=== PATIENT | female | born 2000 | race Caucasian/White ===

== ENCOUNTER 2022-07-03 23:35 | Outpatient (CLI) | payer OTHER, SELFPAY | END 2022-07-03 23:36 | disposition home or self-care (01) | LOC: AMB 07-16 16:43 | PROVIDERS: Visit Provider Internal Medicine | DX: S61.012A Laceration without foreign body of left thumb without damage to nail, initial encounter (principal); W45.8XXA Other foreign body or object entering through skin, initial encounter; Y92.9 Unspecified place or not applicable | CPT/HCPCS: A0425; A0429 ==

== ENCOUNTER 2022-07-03 23:53 | Emergency (ER) | payer OTHER, SELFPAY ==
[2022-07-03 23:54] VITALS: BP 99/73; PULSE 96; RESP 18; TEMP 36.9; O2SAT 98; BMI 20.5
[2022-07-04] MEDS: lidocaine HCL 2 % MULTIDOSE 20 ML VIAL INJECTION (00:09)
--- NOTE | 2022-07-04 00:34 | ED_ITS ---
HPI - General Adult General Chief complaint: Laceration/Wound Stated complaint: Thumb Lac Time Seen by Provider: 07/04/22 00:00 History of Present Illness HPI narrative: Pt is a [address] [employer] student who presents after cutting the smith aspect of her right thumb accidently with a pearing knife. Laceration is 3 cm in length with good wound approximation. No other injuries. Pain is mild. No signs of disrupted nerves, tendons or significant blood vessel. Accident happened imediately before coming to the ED. Tdap up to date. Related Data Home Medications Medication Instructions Recorded Confirmed dextroamphetamine-amphetamine 20 07/04/22 mg tablet dextroamphetamine-amphetamine 30 07/04/22 mg tablet methylphenidate HCl 30 mg biphasic mg PO 07/04/22 50-50 capsule,extended release Allergies Allergy/AdvReac Type Severity Reaction Status Date / Time No Known Drug Allergies Allergy Verified 07/04/22 00:01 Review of Systems Status of ROS: Reports: 10 or more systems reviewed and unremarkable except as noted in History and below PFSH PFSH Social History Smoking Status: Never smoker Do you use any of these nicotine containing products: None Second hand tobacco smoke exposure: No How often do you have a drink containing alcohol: 2-4 times a month How many standard drinks containing alcohol do you have on a typical day: 1 or 2 How often do you have six or more drinks on one occasion: Never AUDIT-C Alcohol total score: 2 Non-prescribed substance use: denies use service: No Exam Narrative: Exam Narrative: EXAM GENERAL: Patient appears comfortable and well. EYES: No scleral icterus. ENT: Tympanic membranes and oropharynx normal. THYROID: no thyroid nodules or thyromegaly. LYMPH: No supraclavicular or cervical lymphadenopathy. SKIN: Laceration noted palmar aspect of the left thumb 3 cm distal to the D IP EXT: No dependent lower extremity pedal edema. HEART: Regular rate and rhythm with no murmurs, rubs, or gallops. LUNGS: Clear to auscultation bilaterally with no crackles or wheezes. ABD: Soft, non tender, non distended. PSYCH: Good eye contact, speech is not pressured. Const: Vital Signs, click to edit/add: Vital Signs - 24 hr 07/03/22 23:54 Temperature 98.5 F Pulse Rate [Right Pulse Oximeter] 96 Respiratory Rate 18 Blood Pressure [Le ft Upper Arm] 99/73 Pulse Oximetry 98 Oxygen Delivery Me thod Room Air Course Course Hospital Course: Lidocaine was applied if the wound was carefully cleansed. I did close the defect with 4 running 3 0 Ethilon sutures. Wound was dressed. Vital Signs Vital signs: Initial Vital Signs Temperature 98.5 F 07/03/22 23:54 Temperature Source Temporal Artery Scan 07/03/22 23:54 Pulse Rate 96 07/03/22 23:54 Respiratory Rate 18 07/03/22 23:54 Blood Pressure 99/73 07/03/22 23:54 Blood Pressure Mean 81 07/03/22 23:54 Blood Pressure Position Supine 07/03/22 23:54 Pulse Oximetry 98 07/03/22 23:54 Oxygen Delivery Method 07/03/22 23:54 Vital Signs Temperature 98.5 F 07/03/22 23:54 Pulse Rate 96 07/03/22 23:54 Respiratory Rate 18 07/03/22 23:54 Blood Pressure 99/73 07/03/22 23:54 Pulse Oximetry 98 07/03/22 23:54 Oxygen Delivery Method 07/03/22 23:54 Temperature 98.5 F 07/03/22 23:54 Pulse Rate 96 07/03/22 23:54 Respiratory Rate 18 07/03/22 23:54 Blood Pressure 99/73 07/03/22 23:54 Pulse Oximetry 98 07/03/22 23:54 Oxygen Delivery Method 07/03/22 23:54 Medical Decision Making MDM Narrative Medical decision making narrative: Laceration the soft tissue no bony her or major vascular involvement. The wound was carefully cleaned and closed. Wound was carefully washed and dressed. Differential Diagnosis Differential Diagnosis: Laceration Discharge Plan Discharge Clinical Impression: Laceration Patient Disposition: Home, Self-Care Condition: Stable Additional Instructions: Change dressing daily Tylenol/Motrin for pain Follow up with Primary Care for suture removal in 1 week Activity Level: No Restrictions Discharge Diet: Regular Prescriptions: No Action dextroamphetamine-amphetamine 30 mg tablet Label Comments: TAKE 1 TABLET BY MOUTH IN THE MORNING dextroamphetamine-amphetamine 20 mg tablet Label Comments: TAKE 1 TABLET BY MOUTH IN THE AFTERNOON methylphenidate HCl 30 mg capsule,ER biphasic 50-50 PO Label Comments: TAKE 1 CAPSULE BY MOUTH EVERY DAY IN THE MORNING Stand Alone Forms: MyHealth Info Instructions
--- NOTE | 2022-07-04 01:21 | ED.NURSE ---
did dress wound with bacitracin and a bandaid. tube gauze was placed. wanted a w/c ride out to her room mates' car.
== END 2022-07-04 01:00 | disposition home or self-care (01) ==
PROVIDERS: Emergency Provider Internal Medicine
DX: S61.011A Laceration without foreign body of right thumb without damage to nail, initial encounter (principal); W26.0XXA Contact with knife, initial encounter; Y93.G3 Activity, cooking and baking
CPT/HCPCS: 12002; 99283

== ENCOUNTER 2022-07-23 13:47 | Emergency (ER) | payer OTHER, SELFPAY ==
[2022-07-23 14:01] VITALS: BP 96/54; PULSE 113; RESP 16; TEMP 37.7; O2SAT 96; BMI 20.5
--- NOTE | 2022-07-23 14:19 | CRLHL7_ITS ---
For Patients: As a result of the Century Cures Act, medical imaging exams and procedure reports are released immediately into your electronic medical record. You may view this report before your referring provider. If you have questions, please contact your health care provider. INDICATION: Tonsillar swelling and exudate. TECHNIQUE: CT soft tissue of the neck was acquired with 55 milliliters Isovue 370 contrast. COMPARISON: None. FINDINGS: Scattered subcentimeter lymph nodes are seen in the neck. None are pathologically enlarged or abnormally enhancing. The parotid, submandibular, and thyroid glands are normal. The muscles of the neck are normal. Fascial planes are preserved and the deep spaces of the neck are normal. The visualized airway is widely patent, and the larynx is normal. Thickening and edema of the tonsils bilaterally. No focal drainable fluid collections axial image 19 through 37 the visualized esophagus is normal. Vessels of the neck demonstrate normal course, caliber, and enhancement. Limited examination of the posterior fossa and brain is unremarkable. The visualized cervical spine is unremarkable. The visualized orbits and paranasal sinuses are normal. Limited examination of the superior thorax shows no pulmonary consolidation, suspicious nodules, or pleural effusions. IMPRESSION: Thickening and edema of the tonsils bilaterally. No focal drainable fluid collections. Constellation of findings can be seen in the setting of tonsillitis. Please note that all CT scans at this facility use dose modulation, iterative reconstruction, and/or weight-based dosing when appropriate to reduce radiation dose to as low as reasonably achievable. Dictated by Arnoldo Doyle MD @ 07/23/2022 3:36:49 PM (Electronically Signed)
--- NOTE | 2022-07-23 14:22 | ED.GENADULT ---
HPI - General Adult General Chief complaint: Headache/Migraine Stated complaint: Headache Time Seen by Provider: 07/23/22 13:49 History of Present Illness HPI narrative: This 22-year-old female comes in reporting fever, rash in the mornings, sore throat, and headache. She states that she has had these symptoms on and off over the past month or more. She has been on 2 different antibiotics with steroids and states that she feels better during these treatments but after it is completed her symptoms have worsened. She does have some muffling of her voice but does not have trismus. Related Data Home Medications Medication Instructions Recorded Confirmed dextroamphetamine-amphetamine 20 07/04/22 mg tablet dextroamphetamine-amphetamine 30 07/04/22 mg tablet methylphenidate HCl 30 mg biphasic mg PO 07/04/22 50-50 capsule,extended release escitalopram oxalate 20 mg tablet 20 mg PO DAILY 07/23/22 07/23/22 (Lexapro) Previous Rx's Medication Instructions Recorded doxycycline hyclate 100 mg capsule 100 mg PO BID 10 days #20 caps 07/23/22 hydrocodone 5 mg-acetaminophen 325 1 tab PO Q4-6H PRN pain #20 tabs 07/23/22 mg tablet methylprednisolone 4 mg tablets in See Rx Instructions PO .COMPLEX 07/23/22 a dose pack (Medrol (Garret)) #21 ea Allergies Allergy/AdvReac Type Severity Reaction Status Date / Time No Known Drug Allergies Allergy Verified 07/04/22 00:01 Review of Systems Status of ROS: Reports: 10 or more systems reviewed and unremarkable except as noted in History and below Narrative: Constitutional: No weight gain or loss. She reports fevers. Eyes: No discharge. No vision changes. HENT: No congestion. She has sore throat and ear pain bilaterally. Cardiovascular: No chest pain, no palpitations. Respiratory: No shortness of breath, no wheezes, no cough. Gastrointestinal: No abdominal pain, no vomiting, no diarrhea. Genitourinary: No dysuria, no hematuria. Musculoskeletal: Normal range of motion. Skin: No pruritis. She reports hives on her legs in the morning. Neurological: No dizziness, weakness, sensory change, speech change. Endo/Heme/Allergies: No bruising or bleeding. No polydipsia. Pysch: no suicidality, no anxiety, no insomnia. All other systems reviewed and are negative. PFSH PFSH Social History Smoking Status: Never smoker Do you use any of these nicotine containing products: None Second hand tobacco smoke exposure: No How often do you have a drink containing alcohol: 2-4 times a month How many standard drinks containing alcohol do you have on a typical day: 1 or 2 How often do you have six or more drinks on one occasion: Never AUDIT-C Alcohol total score: 2 Non-prescribed substance use: denies use service: No Exam Narrative: Exam Narrative: Constitutional: Well-developed, well-nourished. She is diaphoretic. HEENT: Normocephalic, atraumatic. Tympanic membranes appear normal bilaterally. Oropharynx has bilateral tonsillar hypertrophy with exudate. Neck: Normal range of motion. Nontender. Supple. Heart: Regular. No murmurs. Tachycardia, around 110 beats per minute. Intact distal pulses. Lungs: Clear to auscultation. No chest discomfort. No wheezes, rhonchi, or rales. Abdomen: Normal bowel sounds. Nontender. No rebound tenderness. Genitalia: Deferred. Back: No midline tenderness. Normal range of motion. Extremities: Normal range of motion. No injury. Skin: Intact. No rash. Warm. No erythema or pallor. Neurologic: No altered sensation. No weakness. Alert and oriented. Psychiatric: No suicidality. No anxiety or depression. No insomnia. Nursing notes and vitals signs are reviewed. Const: Vital Signs, click to edit/add: Vital Signs - 24 hr 07/23/22 14:01 07/23/22 16:43 Temperature 99.9 F H 98.6 F Pulse Rate [Left P ulse Oximeter] 113 H 88 Respiratory Rate 16 16 Blood Pressure [Le ft Upper Arm] 96/54 L 94/56 L Pulse Oximetry 96 99 Oxygen Delivery Me thod Room Air Course Vital Signs Vital signs: Initial Vital Signs Temperature 99.9 F H 07/23/22 14:01 Temperature Source Temporal Artery Scan 07/23/22 14:01 Pulse Rate 113 H 07/23/22 14:01 Respiratory Rate 16 07/23/22 14:01 Blood Pressure 96/54 L 07/23/22 14:01 Blood Pressure Mean 68 07/23/22 14:01 Blood Pressure Position Left Lateral 07/23/22 14:01 Pulse Oximetry 96 07/23/22 14:01 Vital Signs Temperature 99.9 F H 07/23/22 14:01 Pulse Rate 113 H 07/23/22 14:01 Respiratory Rate 16 07/23/22 14:01 Blood Pressure 96/54 L 07/23/22 14:01 Pulse Oximetry 96 07/23/22 14:01 Temperature 98.6 F 07/23/22 16:43 Pulse Rate 88 07/23/22 16:43 Respiratory Rate 16 07/23/22 16:43 Blood Pressure 94/56 L 07/23/22 16:43 Pulse Oximetry 99 07/23/22 16:43 Oxygen Delivery Method 07/23/22 16:43 Medical Decision Making MDM Narrative Medical decision making narrative: This patient comes in with more than a month of sore throat and headache with occasional fevers. She has been treated twice with antibiotics. This was done elsewhere. She believes that she had taken Keflex at 1st and then Augmentin. She returns today with some muffling of her voice but does not have trismus. Her oropharynx shows bilateral tonsillar swelling with exudate. She has anterior cervical lymphadenopathy also. An IV was established and labs were drawn. She does have an increased white count at around 16,000. Her lactate level is in normal range. A blood culture is acquired with results pending. CT scan of the soft tissue of the neck shows bilateral tonsillar swelling typical of tonsillitis. There is no evidence of abscess. With patient received an IV dose of Rocephin and Dilaudid. A Monospot test was negative. She received prescriptions for doxycycline, Medrol Dosepak, and [place]. I advised her to follow-up with [facility] if not improving in the next few days. Lab Data Labs: Lab Results 07/23/22 07/23/22 07/23/22 Range/Units 14:34 14:34 14:34 WBC 16.29 H (4.50-11.00) K/uL RBC 4.05 (4.00-5.20) m/uL Hgb 11.7 L (12.0-16.0) gm/dL Hct 35.5 (33.0-51.0) % MCV 88 (80-100) fL MCH 29 (26-34) pg MCHC 33 (32-36) gm/dL RDW Coeff of [place] 13.0 (11.5-15.5) % Plt Count 269 (140-440) K/uL Neut % (Auto) 90.4 H (42.0-72.0) % Lymph % (Auto) 4.7 L (20-44) % [place] % (Auto) 4.2 (0.0-11.0) % Eos % (Auto) 0.0 (0.0-7.0) % Baso % (Auto) 0.1 (0.0-3.0) % Neut # (Auto) 14.70 H (1.7-7.0) K/uL Lymph # (Auto) 0.80 L (0.90-2.90) K/uL [place] # (Auto) 0.70 (0.00-0.90) K/UL Eos # (Auto) 0.00 (0.00-0.50) K/uL Baso # (Auto) 0.00 (0.00-0.30) K/uL Abs Immat Gran (auto) 0.10 (0.00-0.30) K/uL Sodium 132 L (135-149) mmol/L Potassium 3.2 L (3.6-5.1) mmol/L Chloride 100 (96-114) mmol/L Carbon Dioxide 21 (20-32) mmol/L BUN 7 (5-24) mg/dL Creatinine 0.6 (0.5-1.5) mg/dL Estimated Creat Clear 117.31 Estimated GFR 131 ml/min Glucose 135 H (60-115) mg/dL Lactate 0.9 (0.5-1.9) mmol/L Calcium 8.7 (8.4-10.6) mg/dL Monoscreen (Negative) 07/23/22 Range/Units 14:34 WBC (4.50-11.00) K/uL RBC (4.00-5.20) m/uL Hgb (12.0-16.0) gm/dL Hct (33.0-51.0) % MCV (80-100) fL MCH (26-34) pg MCHC (32-36) gm/dL RDW Coeff of [place] (11.5-15.5) % Plt Count (140-440) K/uL Neut % (Auto) (42.0-72.0) % Lymph % (Auto) (20-44) % [place] % (Auto) (0.0-11.0) % Eos % (Auto) (0.0-7.0) % Baso % (Auto) (0.0-3.0) % Neut # (Auto) (1.7-7.0) K/uL Lymph # (Auto) (0.90-2.90) K/uL [place] # (Auto) (0.00-0.90) K/UL Eos # (Auto) (0.00-0.50) K/uL Baso # (Auto) (0.00-0.30) K/uL Abs Immat Gran (auto) (0.00-0.30) K/uL Sodium (135-149) mmol/L Potassium (3.6-5.1) mmol/L Chloride (96-114) mmol/L Carbon Dioxide (20-32) mmol/L BUN (5-24) mg/dL Creatinine (0.5-1.5) mg/dL Estimated Creat Clear Estimated GFR ml/min Glucose (60-115) mg/dL Lactate (0.5-1.9) mmol/L Calcium (8.4-10.6) mg/dL Monoscreen Negative (Negative) Imaging Data CT Neck - Soft tissues: Radiologist's impression: Thickening and edema of the tonsils bilaterally. No focal drainable fluid collections. Constellation of findings can be seen in the setting of tonsillitis. Discharge Plan Discharge Clinical Impression: Acute tonsillitis Patient Disposition: Home, Self-Care Condition: Unchanged Additional Instructions: Take medication as prescribed. A follow-up appointment with [facility] is recommended. Return if worsening symptoms happen. Prescriptions: New doxycycline hyclate 100 mg capsule 100 mg PO BID 10 Days Qty: 20 0RF hydrocodone-acetaminophen 5-325 mg tablet 1 tab PO Q4-6H PRN (Reason: pain) Qty: 20 0RF methylprednisolone [Medrol (Garret)] 4 mg tablets,dose pack See Rx Instructions .ROUTE .COMPLEX Qty: 21 0RF Rx Instructions: orally per package directions No Action dextroamphetamine-amphetamine 30 mg tablet Label Comments: TAKE 1 TABLET BY MOUTH IN THE MORNING dextroamphetamine-amphetamine 20 mg tablet Label Comments: TAKE 1 TABLET BY MOUTH IN THE AFTERNOON methylphenidate HCl 30 mg capsule,ER biphasic 50-50 PO Label Comments: TAKE 1 CAPSULE BY MOUTH EVERY DAY IN THE MORNING escitalopram oxalate [Lexapro] 20 mg tablet 20 mg PO DAILY Follow Up/Referrals: Provider,Not a Local [Primary Care Provider] - Stand Alone Forms: [employer] Info Instructions
[2022-07-23 14:41] LABS: Lactate* 0.9 mmol/L (0.5-1.9)
[2022-07-23] MEDS: ONDANSETRON 2 MG/ML inj 4 MG IVP (14:42)
[2022-07-23] MEDS: HYDROmorphone 0.5 mg/0.5 ml inj IVP (14:42)
[2022-07-23 14:43] LABS: Basophils Percent Auto 0.1 % (0.0-3.0); Hematocrit 35.5 % (33.0-51.0); Hemoglobin* 11.7 gm/dL (12.0-16.0); Lymphocytes Percent Auto 4.7 % (20-44); Mean Corpuscular HGB Conc 33 gm/dL (32-36); Mean Corpuscular Hemoglobin 29 pg (26-34); Mean Corpuscular Volume 88 fL (80-100); Monocytes Percent Auto 4.2 % (0.0-11.0); Neutrophils Percent Auto 90.4 % (42.0-72.0); Platelet Count* 269 K/uL (140-440); Red Blood Count 4.05 m/uL (4.00-5.20); White Blood Count* 16.29 K/uL (4.50-11.00)
[2022-07-23] MEDS: 0.9 % SODIUM CHLORIDE 500 ML 500 ML IV (14:43)
[2022-07-23 14:50] LABS: Slide Review Reflex No
[2022-07-23 14:56] LABS: Chloride* 100 mmol/L (96-114); Sodium* 132 mmol/L (135-149)
[2022-07-23 14:57] LABS: Potassium* 3.2 mmol/L (3.6-5.1)
[2022-07-23 14:59] LABS: Carbon Dioxide* 21 mmol/L (20-32); Creatinine* 0.6 mg/dL (0.5-1.5); Est. Creatinine Clearance* 117.31; Estimated Glomerular Filt Rate 131 ml/min
[2022-07-23 15:00] LABS: Blood Urea Nitrogen* 7 mg/dL (5-24); Calcium* 8.7 mg/dL (8.4-10.6); Glucose* 135 mg/dL (60-115)
--- OUTSIDE RECORDS SUMMARY | 2022-07-23 15:13 | XMS_ITS | Encounter Summary ---
:2000 Author Organization [place] Address [facility] [place] [address] Care Team Providers Name Role Phone No Ref-Primary, Physician Primary Care Provider [phone] Reason for Visit Diagnostic Imaging XR (Routine) - Pending Review Specialty Diagnoses / Procedures Referred By Contact Refer red To Contact Diagnoses Cough Herman Sanches MD Procedures XR Chest [address] [place] [address] [place] [id number] Referral ID Status Reason Start Date Expiration Date Visits V isits Requested Authorized [id number] Pending 07/04/2022 07/04/2023 1 1 Review Encounter Details Date Type Department Care Team Description 07/04/2022 Ancillary Procedure [facility] Devyn Sanchse MD [facility] [address] [place] [id number] [phone] Social History Tobacco Use Types Packs/Day Years Used Date Never Smoker Smokeless Tobacco: Never Used Sex Assigned at Date Recorded Not on file COVID-19 Exposure Response Date Recorded In the last 10 days, have you been in contact with No / Unsu re 07/04/2022 2:05 PM CDT someone who was confirmed or suspected to have Coronavirus/COVID-19? documented as of this encounter Plan of Treatment Not on filedocumented as of this encounter Procedures Procedure Name Priority Date/Time Associated Diagnosis Comme nts XR CHEST 2 VIEWS Routine 07/04/2022 3:47 PM Cough Resul ts for this CDT procedure are i n the results section. documented in this encounter Results XR Chest 2 Views (07/04/2022 3:47 PM CDT) Anatomical Region Laterality Modality Chest Computed Radiography Specimen (Source) Anatomical Collection Method Collection Time Re ceived Time Location / / Volume Laterality 07/04/2022 3:47 PM CDT Impressions 07/04/2022 8:47 PM CDT IMPRESSION: Negative chest. Narrative 07/04/2022 8:47 PM CDT EXAM: XR CHEST 2 VIEWS LOCATION: [facility] DATE/TIME: 07/04/2022 3:47 PM INDICATION: cough COMPARISON: None. Procedure Note Bere Irizarry MD - 07/04/2022Forma tting of this note might be different from the original. EXAM: XR CHEST 2 VIEWS LOCATION: [facility] DATE/TIME: 07/04/2022 3:47 PM INDICATION: cough COMPARISON: None. IMPRESSION: Negative chest. Herman Sanches MD IMG DIAGNOSTIC IMAGING ORDER FOSTER documented in this encounter Visit Diagnoses Diagnosis Cough documented in this encounter Care Teams Substance Abuse Nurse Relationship Specialty Start Date End Date No Ref-Primary, Physician PCP - General 07/04/22 documented as of this encounter
--- OUTSIDE RECORDS SUMMARY | 2022-07-23 15:13 | XMS_ITS | Clinical Summary ---
:2000 Author Organization [facility] [place] [address] Care Team Providers Name Role Phone Pcp, No Primary Care Provider Unavailable Allergies No known active allergies Medications Medication Sig Dispensed Refills Start Date End Date Status methylphenidate HCl Take 54 mg by 0 12/11/2020 Active (CONCERTA) 54 mg ER mouth once daily tablet ethynodiol diac-eth Take 35 Tablets 0 11/14/2020 Active estradiol, 1-35 mg-mcg, by mouth once (KELNOR , 28,) daily. tablet ferrous sulfate, 65 mg Take 1 Tablet 90 Tablet 2 01/07/2021 Active elemental, (325 mg) by tabletIndications: Iron mouth 2 times deficiency anemia daily with secondary to inadequate meals. dietary iron intake Active Problems Problem Noted Date Iron deficiency anemia 01/07/2021 Vegan diet 06/13/2018 Attention deficit disorder 06/13/2018 Overview: Last Assessment & Plan: - Continue home Concerta - Uses Ritalin PRN for attention in afte rnoon. Not currently on MAR Immunizations Name Administration Dates Next Due Human Papilloma Virus Vaccine 07/10/2013, 09/02/2012, 2011 Influenza Virus, Unspecified 11/02/2017, 07/10/2013 Meningococcal B 06/07/2019, 05/04/2019 Meningococcal Vaccine (Menactra) 06/10/2017, 06/30/2012 Tdap 05/31/2020, 06/30/2012 Social History Tobacco Use Types Packs/Day Years Used Date Never Smoker Smokeless Tobacco: Never Used Alcohol Use Standard Drinks/Week Comments Not Currently 0 (1 standard drink = 0.6 oz pure alcoho l) Sex Assigned at Date Recorded Not on file Obstetrics History Last Filed Vital Signs Vital Sign Reading Time Taken Comments Blood Pressure 94/64 01/03/2021 8:41 AM [employer] SPECIALIST Pulse 62 01/03/2021 8:41 AM HR[employer] SPECIALIST Temperature 36.8 ??C (98.2 ??F) 01/03/2021 8:41 AM HRIS SPECIALIST Respiratory Rate - - Oxygen Saturation - - Inhaled Oxygen Concentration - - Weight 51 kg (112 lb 6.4 oz) 01/03/2021 8:41 AM HRIS SPECIALIST Height 157.5 cm (5' 2) 01/03/2021 8:41 AM HRIS SPECIALIST Body Mass Index 20.56 01/03/2021 8:41 AM HRIS SPECIALIST Plan of Treatment Health Maintenance Due Date Last Done Comments COVID-19 vaccine series (#1) 2001 Chlamydia for age 16-24 2017 Hepatitis C screening for age 18-79 2019 BMI (ht and wt on same day) for age 0301/03/2022 01/03/2021 18+ Depression screening for age 12+ 01/03/2022 01/03/2021 Pap test for age 21-65 2022 Influenza for age 9-49 06/25/2022 11/02/2017, 07/10/2013 Tetanus booster 05/31/2030 05/31/2020, 06/30/2012 HPV series for age 9-26 Completed 07/10/2013, 09/02/2012, 06/30/2012 Meningococcal series for age 11-21 Completed 06/10/2017, 0 06/30/2012 Tdap Completed 05/31/2020, 06/30/2012 Results Not on filefrom Last 3 Months Insurance Payer Benefit Plan / Subscriber ID Effective Dates Phone Addre ss Type Group [facility] [id number] 2020-Present [address] [address] [place] [address] Care Teams Direct Mail Clerk Relationship Specialty Start Date End Date Pcp, No PCP - General 01/01/21 .
--- OUTSIDE RECORDS SUMMARY | 2022-07-23 15:13 | XMS_ITS | Encounter Summary ---
:2000 Author Organization [facility] Address [address] [facility] [place] [address] Care Team Providers Name Role Phone No Ref-Primary, Physician Primary Care Provider Reason for Referral Diagnostic Imaging XR (Routine) - Pending Review Specialty Diagnoses / Procedures Referred By Contact Refer red To Contact Diagnoses Herman Neumann MD Procedures XR Chest 2 Views [address] [facility] [place] [address] Referral ID Status Reason Start Date Expiration Date Visits V isits Requested Authorized [id number] Pending 07/04/2022 07/04/2023 1 1 Review Reason for Visit Reason Comments Cough Cough, sore throat, shallow breathes, started at college on Wednesday and there is a lot of black mold, she is progressively getting worse, she was dx with tonsillitis a month ago, not sure that she really ever recovered from that, she is very dizzy and weak Encounter Details Date Type Department Care Team Description 07/04/2022 Office Visit [facility] Herman Sanches M D Throat pain (Primary Dx); Urgent Care [facility] [address] [facility] Cough; [address] [facility] Lower respiratory tract infection [place] [address] [phone] Social History Tobacco Use Types Packs/Day Years Used Date Never Smoker Smokeless Tobacco: Never Used Sex Assigned at Date Recorded Not on file COVID-19 Exposure Response Date Recorded In the last 10 days, have you been in contact with No / Unsu re 07/04/2022 2:05 PM CDT someone who was confirmed or suspected to have Coronavirus/COVID-19? documented as of this encounter Last Filed Vital Signs Vital Sign Reading Time Taken Comments Blood Pressure 114/75 07/04/2022 2:58 PM CDT Pulse 114 07/04/2022 2:58 PM CDT Temperature 37.1 ??C (98.8 ??F) 07/04/2022 2:58 PM CDT Respiratory Rate 14 07/04/2022 2:58 PM CDT Oxygen Saturation 100% 07/04/2022 2:58 PM CDT Inhaled Oxygen Concentration - - Weight - - Height - - Body Mass Index - - documented in this encounter Patient Instructions Patient InstructionsHerman Sanches MD - 07/04/2022 2:10 PM CDT Okay to take ibuprofen 200 mg - 4 tablets (800 mg) every 8 hours as needed. Okay to take tylenol 500 mg - 2 tablets (1000 mg) every 6-8 hours as needed, do not exceed 3000 mg in 24 hours. Take full course of Augmentin for bronchitis/lower respiratory tract infection. This will also coverfor strep throat (culture is pending) Use albuterol inhaler to help with cough, wheezing or shortness of breath Take tessalon perles to help with cough three times a day as needed Take full course of prednisone burst to help decrease tonsillar swelling AttachmentsThe following attachments cannot be sent through Care Everywhere. Bronchitis, Antibiotic Treatment (Adult) (Citizen Of [place])documented in this encounter Progress Notes Herman Sanches MD - 07/04/2022 2:10 PM CDT SUBJECTIVE: New patient to [facility] Erica De La Cruz is a 22 year old female presenting with a chief complaint of cough, sore throat, dizzy/weak. Onset of symptoms was 1 week(s) ago. Course of illness is worsening. Severity moderate Current and Associated symptoms: cough, weak, sore throat Treatment measures tried include Tylenol/Ibuprofen, Fluids and Rest. Predisposing factors include: recent illness. Treated for tonsillitis, did improve with antibiotic and steroid but not fully recovered and got sick again. Completed COVID vaccinations Rapid COVID test negative Roommate also sick but not as bad as her Exposed to mold at [facility] Medical history - anxiety, ADHD History reviewed. No pertinent past medical history. Current Outpatient Medications Medication Sig Dispense Refill ??? albuterol (PROAIR HFA/PROVENTIL HFA/VENTOLIN HFA) 108 (90 Base) MCG/ACT inhaler Inhale 2 puffs into the lungs every 6 hours as needed for shortness of breath / dyspnea or wheezing 18 g 0 ??? amoxicillin-clavulanate (AUGMENTIN) 875-125 MG tablet Take 1 tablet by mouth 2 times daily for 10 days 20 tablet 0 ??? benzonatate (TESSALON) 200 MG capsule Take 1 capsule (200 mg) by mouth 3 times daily as needed for cough 30 capsule 0 ??? predniSONE (DELTASONE) 20 MG tablet Take 2 tablets (40 mg) by mouth daily for 5 days 10 tablet 0 ??? amphetamine-dextroamphetamine (ADDERALL) 20 MG tablet TAKE 1 TABLET BY MOUTH IN THE AFTERNOON ??? amphetamine-dextroamphetamine (ADDERALL) 30 MG tablet ??? escitalopram (LEXAPRO) 20 MG tablet ??? KELNOR 1-35 MG-MCG tablet Social History Tobacco Use ??? Smoking status: Never Smoker ??? Smokeless tobacco: Never Used Substance Use Topics ??? Alcohol use: Not on file ROS: Review of systems negative except as stated above. OBJECTIVE: BP 114/75 Pulse 114 Temp 98.8 ??F (37.1 ??C) Resp 14 SpO2 100% GENERAL APPEARANCE: healthy, alert and no distress EYES: EOMI, PERRL, conjunctiva clear RESP: lungs clear to auscultation - no rales, rhonchi or wheezes CV: regular rates and rhythm, normal S1 S2, no murmur noted PSYCH: mentation appears normal and affect normal/bright CXR - no acute infiltrate, no pleural effusion, no pneumothorax personally viewed by me Results for orders placed or performed in visit on 07/04/22 Streptococcus A Rapid Screen w/Reflex to PCR - Clinic Collect Status: Normal Specimen: Throat; Swab Result Value Ref Range Group A Strep antigen Negative Negative ASSESSMENT/PLAN: (R07.0) Throat pain (primary encounter diagnosis) Plan: Streptococcus A Rapid Screen w/Reflex to PCR - Clinic Collect, Group A Streptococcus PCR Throat Swab, predniSONE (DELTASONE) 20 MG tablet (R05.9) Cough Plan: XR Chest 2 Views, benzonatate (TESSALON) 200 MG capsule (J22) Lower respiratory tract infection Plan: albuterol (PROAIR HFA/PROVENTIL HFA/VENTOLIN HFA) 108 (90 Base) MCG/ACT inhaler, amoxicillin-clavulanate (AUGMENTIN) 875-125 MG tablet, predniSONE (DELTASONE) 20 MG tablet Reassurance given, reviewed symptomatic treatment with tylenol, ibuprofen, plenty of fluids and rest. RX Augmentin given for coverage for lower respiratory tract infection due to worsening symptoms, this will also treat for strep/tonsillitis (throat culture pending). RX prednisone burst given to help w ith tonsillitis. RX albuterol inhaler given for respiratory symptoms. Will follow up on formal Xray report and notify if any abnormalities. Follow up with primary provider if no improvement of symptoms in 1 week Herman Sanches MD July 04, 2022 5:40 PM documented in this encounter Plan of Treatment Not on filedocumented as of this encounter Procedures Procedure Name Priority Date/Time Associated Comments Diagnosis STREPTOCOCCUS A RAPID Today 07/04/2022 3:04 PM Throat pain Results for this SCREEN W REFELX TO PCR CDT proce dure are in the results section. GROUP A STREPTOCOCCUS Early AM 07/04/2022 3:04 PM Throat pain Results for this PCR THROAT SWAB CDT procedure ar e in the results section. documented in this encounter Results XR Chest 2 Views (07/04/2022 3:47 PM CDT) Anatomical Region Laterality Modality Chest Computed Radiography Specimen (Source) Anatomical Collection Method Collection Time Re ceived Time Location / / Volume Laterality 07/04/2022 3:47 PM CDT Impressions 07/04/2022 8:47 PM CDT IMPRESSION: Negative chest. Narrative 07/04/2022 8:47 PM CDT EXAM: XR CHEST 2 VIEWS LOCATION: [facility] DATE/TIME: 07/04/2022 3:47 PM INDICATION: cough COMPARISON: None. Procedure Note Bere Irizarry MD - 07/04/2022Forma tting of this note might be different from the original. EXAM: XR CHEST 2 VIEWS LOCATION: [facility] [place] [facility] DATE/TIME: 07/04/2022 3:47 PM INDICATION: cough COMPARISON: None. IMPRESSION: Negative chest. Herman Sanches MD IMG DIAGNOSTIC IMAGING ORDER FOSTER Group A Streptococcus PCR Throat Swab (07/04/2022 3:04 PM CDT) Patholo gist Method Time Signature Group A strep Not Detected Not Detected 07/05/2022 [facility] by PCR 4:10 PM CDT LABORATORY Specimen Anatomical Collection Method Collection Time Receive d Time (Source) Location / / Volume Laterality Swab STRUCTURE OF Non-blood 07/04/2022 3:04 PM 2 3:19 ANTERIOR PORTION Collection / CDT PM CDT OF NECK / Unknown Unknown Narrative [facility] - 07/05/2022 4:10 PM C DT The Xpert Xpress Strep A test, performed on the [employer] Instrument Systems, is a rapid, qualitative in vitro diagnostic t est for the detection of Streptococcus pyogenes (Group A ? - hemolytic Streptococcus, Strep A) in thr oat swab specimens from patients with signs and symptoms of pharyngitis. The Xpert X press Strep A test can be used as an aid in the diagnosis of Group A Streptococcal p haryngitis. The assay is not intended to monitor treatment for Group A Streptococ cus infections. The Xpert Xpress Strep A test utilizes an automated real-time polymera se chain reaction (PCR) to detect Streptococcus pyogenes DNA. Herman Sanches MD LAB - MICRO GENERAL ORDERABL ES Performing Organization Address City/State/ZIP Code Phon e Number [facility]AT[facility] [place] [address] [facility], [address] Streptococcus A Rapid Screen w/Reflex to PCR - Clinic Collect (07/04/2022 3:04 PM CDT) Analysis Performed At Patho logist Time Signature Group A Strep Negative Negative 07/04/2022 [facility] LABORATORY antigen 3:19 PM CDT Specimen Anatomical Collection Method Collection Time Receive d Time (Source) Location / / Volume Laterality Swab STRUCTURE OF Non-blood 07/04/2022 3:04 PM 2 3:07 ANTERIOR PORTION Collection / CDT PM CDT OF NECK / Unknown Unknown Herman Sanches MD LAB - MICRO GENERAL ORDERABL ES Performing Organization Address City/State/ZIP Code Phon [place] [address] Lab [address] [facility] (no room number, 1st floor of clinic) [place] [address], [phone] [facility] [address] [facility] (no room number, 1st floor of clinic) documented in this encounter Visit Diagnoses Diagnosis Throat pain - Primary Cough Lower respiratory tract infection Other diseases of respiratory system, no t elsewhere classified Cough documented in this encounter Care Teams Staff Submarine Warfare Officer Relationship Specialty Start Date End Date No Ref-Primary, Physician PCP - General 07/04/22 documented as of this encounter
--- OUTSIDE RECORDS SUMMARY | 2022-07-23 15:13 | XMS_ITS ---
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), inattentive type Problem HENRY (generalized F41.1 Active 218 07575 anxiety disorder) ALLERGIES No Known Allergies ENCOUNTERS Encounter Location Date Diagnosis [facility] [address] [place] [address] [facility] [address] Jun, [place] [address] [facility] [address] Jun, [place] [address] [facility] [address] Jun, ADHD (a ttention deficit [place] hyperactivity d isorder), [address] inattentive type F90.0 and HENRY (generalized anxiety disorder) F41.1 [facility] [address] Mar, [place] [address] [facility] [address] Mar, ADHD (a ttention deficit [place] hyperactivity [place]order), [address] inattentive type F90.0 and HENRY (generalized anxiety disorder) F41.1 [facility] [address] Jan, ADHD (a ttention deficit [place] hyperactivity [place]order), [address] inattentive type F90.0 and HENRY (generalized anxiety disorder) F41.1 [facility] [address] Dec, ADHD (a ttention deficit [place] hyperactivity [place]order), [address] inattentive type F90.0 and HENRY (generalized anxiety disorder) F41.1 [facility] [address] Nov, 2021 [place] [address] [facility] [address] Nov, [address] [place] [address] [facility] [address] Nov, [address] [place] [address] [facility] [address] 10[address] Nov, ADHD (a ttention deficit [place] hyperactivity d isorder), [address] inattentive type F90.0 and HENRY (generalized anxiety disorder) F41.1 [facility] [address] Oct, ADHD (a ttention deficit [place] hyperactivity d isorder), [address] inattentive type F90.0 and HENRY (generalized anxiety disorder) F41.1 [facility] [address] [place] [address] Sep, A DHD (attention deficit [place] hyperactivity di sorder), [address] inattentive type F90.0 and HENRY (generalized anxiety disorder) F41.1 [facility] [address] 10[address] Aug, HENRY (ge neralized anxiety [place] disorder) F41.1 [address] [facility] [address] 10[address] Aug, ADHD (a ttention deficit [place] hyperactivity d isorder), [address] inattentive type F90.0 and HENRY (generalized anxiety disorder) F41.1 [facility] [place] [address] [place] Aug, [address] [place] [address] [facility] [address] Aug, [place] [address] [facility] [address] Aug, [place] [address] [facility] [address] Jul, HENRY (ge neralized anxiety [place] disorder) F41.1 and ADHD [address] (attention defic it hyperactivity di sorder), inattentive type F90.0 [facility] [address] Jul, ADHD (a ttention deficit [place] hyperactivity d isorder), [address] inattentive type F90.0 and HENRY (generalized anxiety disorder) F41.1 [facility] [address] 10[address] Jun, ADHD (a ttention deficit [place] hyperactivity d isorder), [address] inattentive type F90.0 and HENRY (generalized anxiety disorder) F41.1 [facility] [address] 10[address] May, ADHD (a ttention deficit [place] hyperactivity d isorder), [address] inattentive type F90.0 and HENRY (generalized anxiety disorder) F41.1 [facility] [address] 10[address] Apr, ADHD (a ttention deficit [place] hyperactivity [place] isorder), [address] inattentive type F90.0 and HENRY (generalized anxiety disorder) F41.1 [facility] [place] [address] [place] Apr, [address] [place] [address] IMMUNIZATIONS No Known Immunizations SOCIAL HISTORY Never Assessed REASON FOR REFERRAL FUNCTIONAL STATUS PLAN OF CARE Activity Details Follow Up 3 Months Reason: Future Appointment Provider Name:Karla cano, 2022-08-10 01:00:00 PM, [address] [place], [address], VITAL SIGNS Height 5'3 in 2021-08-12 Height 63 in in 2021-05-22 Weight 111.8 lbs 2021-08-12 Weight 113.1 lbs 2021-05-22 BMI 19.8 kg/m2 2021-08-12 BMI 20.03 kg/m2 2021-05-22 Respiratory Rate 17 /min 2021-05-22 Heart Rate 61 /min 2021-08-12 Heart Rate 71 /min 2021-05-22 Blood pressure systolic 115 mm Hg 2021-08-12 Blood pressure diastolic 63 mm Hg 2021-08-12 MEDICATIONS Medication Instructions Dosage Frequency Start End Duration Statu s Date Date Concerta 54 MG Orally Once a 1 tablet 24h Jul, days No t-Taki day in the 2020 morning Adderall 20 MG Orally in the 1 tablet Mar, days Ac tive afternoon 2021 Lexapro 20 MG Orally Once a 1 tablet 24h Mar, day(s) A ctive day 2021 Adderall 20 MG Orally in the 1 tablet Mar, 30 days Ac tive afternoon 2021 Adderall 30 MG Orally in the 1 tablet Mar, 30 days Ac tive morning 2021 Methylphenidate Orally Once a 1 capsule 24h Aug, 30 days Not-Taki HCl ER (LA) 30 MG day in the 2020 morning Adderall 30 MG Orally in the 1 tablet Mar, days Ac tive morning 2021 Concerta 54 MG Orally Once a 1 tablet 24h Aug, 30 days No t-Taki day in the 2020 morning Adderall 20 MG Orally in the 1 tablet May, 30 days Ac tive afternoon 2021 Adderall 30 MG Orally in the 1 tablet Apr, 30 days Ac tive morning 2021 Adderall 30 MG Orally in the 1 tablet Apr, days Ac tive morning 2021 Methylphenidate Orally Once a 1 tablet 24h Aug, 30 days N ot-Taki HCl ER 54 MG day in the 2020 morning Adderall 20 MG Orally in the 1 tablet Dec, 30 days Ac tive afternoon 2021 Lexapro 10 MG Orally Once a 1.5 tablet 24h 90 days A ctive day Adderall 20 MG Orally in the 1 tablet 27 Aug, 30 days Ac tive afternoon 2021 Adderall 20 MG Orally in the 1 tablet Jun, days Ac tive afternoon 2021 PROCEDURES Procedure Date Ordered Result Body Site PSYTX PT&/FAM W/E&M 16-30 MIN Oct 20, 2021 PSYTX PT&/FAM W/E&M 16-30 MIN Jul 01, 2021 PSYTX PT&/FAM W/E&M 16-30 MIN January 26, 2022 PSYTX PT&/FAM W/E&M 16-30 MIN April 20, 2022 PSYTX PT&/FAM W/E&M 45 MIN May 22, 2021 PSYTX PT&/FAM W/E&M 16-30 MIN Sep 16, 2021 PSYTX PT&/FAM W/E&M 16-30 MIN Jun 16, 2021 PSYTX PT&/FAM W/E&M 16-30 MIN Aug 12, 2021 PSYTX PT&/FAM W/E&M 16-30 MIN Nov 17, 2021 RESULTS No Results REASON FOR VISIT *EST Pt, Rx refill, ePrescription CancelRx response, ePrescription CancelRx response, Adderall Refill Request, [employer], *EST Pt, *EST Pt, refill request, Telepysch, *Cancel due to [facility] miscommunication over telepsych, ePrescription CancelRx response, ePrescription CancelRx response, ePrescription CancelRx response, transfer pharmacy, *EST Pt, I finished the , [facility]- pharmacy, *R/S due to [facility], I have been doing really good, *R/S due to [facility], rx questions, ePrescription CancelRx response, rx refill, Pharmacy Transfer, I don't think my antidepressants are working, so far so good, everything is going well, I'm in need of a refill, Rx History Insurance Providers [facility] Health Member Patient Patient Patient Patient Patient Subscriber Subscriber Subscriber Group Insurance Plan Plan Plan Plan ID Relationship Address Phone Name Date of ID Name Date of No Type Insurance Insurance Insurance Coverage to Subscriber Address Phone Name Dates [facility] [phone] [facility] [id number] [place] [id number]
--- OUTSIDE RECORDS SUMMARY | 2022-07-23 15:13 | XMS_ITS | Encounter Summary ---
:2001 Author Organization [facility] Address [address] [place] [address]. [place] [address] Care Team Providers Name Role Phone No Ref-Primary, Physician Primary Care Provider [phone] Encounter Details Date Type Department Care Team Description 07/04/2022 Travel Social History Tobacco Use Types Packs/Day Years [...] Not on filedocumented as of this encounter Visit Diagnoses Not on filedocumented in this encounter Care Teams Supply Chain Director Relationship Specialty Start Date End Date No Ref-Primary, Physician PCP - General 07/04/22 documented as of this encounter
--- OUTSIDE RECORDS SUMMARY | 2022-07-23 15:13 | XMS_ITS | Encounter Summary ---
:2000 Author Organization [facility] Address [address] [place] [address]. [place] [address] Care Team Providers Name Role Phone No Ref-Primary, Physician Primary Care Provider [phone] Encounter Details Date Type Department Care Team Description 07/11/2022 Travel Social History Tobacco Use Types Packs/Day Years Used Date Never Smoker Smokeless Tobacco: Never Used Sex Assigned at Date Recorded Not on file COVID-19 Exposure Response Date Recorded In the last 10 days, have you been in contact with No / Unsu re 07/11/2022 11:46 AM CDT someone who was confirmed or suspected to have Coronavirus/COVID-19? documented as of this encounter Plan of Treatment Not on filedocumented as of this encounter Visit Diagnoses Not on filedocumented in this encounter Care Teams Gis Coordinator Relationship Specialty Start Date End Date No Ref-Primary, Physician PCP - General 07/04/22 documented as of this encounter
--- OUTSIDE RECORDS SUMMARY | 2022-07-23 15:13 | XMS_ITS | Encounter Summary ---
:2000 Author Organization [place] Address [address] [facility] [place] [address] Care Team Providers Name Role Phone No Ref-Primary, Physician Primary Care Provider Reason for Visit Reason Comments URI Coughing not improving, righ t eye, stitch removal left thumb- sinus infection Encounter Details Date Type Department Care Team Description 07/11/2022 Office Visit [facility] Pilar Escalante t cough (Primary Dx); Ur[facility] Urena PA-C Tachycardia; [address] Fatigue, unspecified type; [place], [place] Acute conjunc tivitis of right eye, unspecified acute conjunctivitis type; [id number] Visit for suture removal [phone] Social History Tobacco Use Types Packs/Day Years [...] Sign Reading Time Taken Comments Blood Pressure 110/60 07/11/2022 11:51 AM CDT Pulse 84 07/11/2022 11:51 AM CDT Temperature 36.7 ??C (98 ??F) 07/11/2022 11:51 AM CDT Respiratory Rate 14 07/11/2022 11:51 AM CDT Oxygen Saturation 100% 07/11/2022 11:51 AM CDT Inhaled Oxygen Concentration - - Weight 50.8 kg (112 lb) 07/11/2022 11:51 AM CDT Height - - Body Mass Index - - documented in this encounter Patient Instructions Patient InstructionsPilar Escalante PA-C - 07/11/2022 12:00 PM CDT I believe persistent cough is due to bronchial irritation. Trial of steroid inhaler until symptoms better. Ok to keep monitoring heart rate. If continues to be elevated establish care with a primary care provider. Might need a holter monitor. AttachmentsThe following attachments cannot be sent through Care Everywhere. Conjunctivitis, What Is? (Icelandic)Stitches/Staple Removal, No Complication (Icelandic)documented in this encounter Progress Notes Pilar Escalante PA-C - 07/11/2022 12:00 PM CDT Assessment & Plan Persistent cough Ongoing symptoms for the past couple weeks. Chest x-ray done a week ago 07/04/2022 negative for acuteinfiltrates. Patient is currently on Augmentin. Completed a course of prednisone 2 days ago. On examshe is in no acute respiratory distress. Vitals are stable. Flovent inhaler is prescribed today. Elly Cortez at home that she can also take as needed for the cough. Keep monitoring symptoms. Would anticipate gradual improvement in symptoms. Follow-up if any worsening symptoms. Patient agrees with the plan. - fluticasone (FLOVENT HFA) 110 MCG/ACT inhaler Dispense: 12 g; Refill: 0 Tachycardia Patient has had intermittent elevated heart rate in the past couple weeks. At first today her heart rate was at 122. Heart rate recheck 84. EKG done here today is negative for acute ST or T wave abnormalities. I have recommended to keep monitoring symptoms. If symptoms are persistent advised to follow-up with primary care provider. May need a Holter monitor. We discussed red flag symptoms and when toseek emergent care. Patient agrees. - EKG 12-lead complete w/read - Clinics Fatigue, unspecified type Patient reports fatigue in the past couple weeks. I believe this is in the setting of a viral illness. We checked for mononucleosis today which resulted negative. Her CBC is unremarkable. CMP is pending she will be notified if any abnormal result. I have recommended to keep monitoring symptoms. Push fluids. Follow-up if any worsening symptoms. Patient agrees with the plan. - CBC with platelets and differential - Comprehensive metabolic panel (BMP + Alb, Alk Phos, ALT, AST, Total. Bili, TP) - Mononucleosis screen Acute conjunctivitis of right eye, unspecified acute conjunctivitis type Onset of symptoms yesterday. Polytrim eyedrops are prescribed today. Follow-up if any worsening symptoms. Patient agrees. - trimethoprim-polymyxin b (POLYTRIM) 38350-1.1 UNIT/ML-% ophthalmic solution Dispense: 5 mL; Refill: 0 Visit for suture removal Running suture removed from the left thumb today without any complication. Follow-up if any worsening symptoms. Patient agrees. 45 minutes spent on the date of the encounter doing chart review, history and exam, patient education, documentation and further activities per the note Return in about 3 weeks (around 08/01/2022) for Symptoms failing to improve. Pilar Escalante PA-C [facility] Nancy Maldonado is a 22 year old female who presents to clinic today for the following health issues: Chief Complaint Patient presents with ??? URI Coughing not improving, right eye, stitch removal left thumb- sinus infection HPI Patient is presenting to urgent care today with 3 complaints. First is recheck on cough. Was seen in urgent care about a week ago treated with Augmentin and prednisone and albuterol inhaler for lower respiratory tract infection. She reports cough is persistent. Cough is productive. Initial onset of symptoms 2 weeks ago. After moving into her college dorm. She did note there was black mold in the room. She also reports elevated heart rate intermittently in the past couple weeks. She reports fatigue. No recent fevers or chills. Second complaint is right eye redness and drainage. Onset yesterday. Third complaint is suture removal from the left thumb. Sutures put in 07/04 [facility] ED Review of Systems Constitutional, HEENT, cardiovascular, pulmonary, GI, , musculoskeletal, neuro, skin, endocrine and psych systems are negative, except as otherwise noted. Objective BP 110/60 (BP Location: Right arm) Pulse (!) 122 Temp 98 ??F (36.7 ??C) (Tympanic) Resp 14 Wt 50.8 kg (112 lb) SpO2 100% Physical Exam GENERAL: healthy, alert and no distress EYES: PERRL, EOM normal, right eye conjunctiva and sclera slightly injected, left eye exam is normal HENT: ear canals and TM's normal, mouth without ulcers or lesions, throat is moist and pink NECK: Cervical adenopathy RESP: lungs clear to auscultation - no rales, rhonchi or wheezes CV: regular rate and rhythm, normal S1 S2, tachycardia MS: no gross musculoskeletal defects noted, no edema SKIN: no suspicious lesions or rashes, well-healing laceration noted volar aspect of left thumb. Running suture removed from the left thumb today without any complication. Bactroban ointment put onand a bandage put on. EKG - Reviewed and interpreted by me appears normal, NSR, no acute ST/T changes c/w ischemia Results for orders placed or performed in visit on 07/11/22 Mononucleosis screen Status: Normal Result Value Ref Range Mononucleosis Screen Negative Negative Comprehensive metabolic panel (BMP + Alb, Alk Phos, ALT, AST, Total. Bili, TP) Status: Abnormal Result Value Ref Range Sodium 138 133 - 144 mmol/L Potassium 3.8 3.4 - 5.3 mmol/L Chloride 105 94 - 109 mmol/L Carbon Dioxide (CO2) 27 20 - 32 mmol/L Anion Gap 6 3 - 14 mmol/L Urea Nitrogen 10 7 - 30 mg/dL Creatinine 0.71 0.52 - 1.04 mg/dL Calcium 8.3 (L) 8.5 - 10.1 mg/dL Glucose 60 (L) 70 - 99 mg/dL Alkaline Phosphatase 59 40 - 150 U/L AST 10 0 - 45 U/L ALT 19 0 - 50 U/L Protein Total 7.5 6.8 - 8.8 g/dL Albumin 3.4 3.4 - 5.0 g/dL Bilirubin Total 0.3 0.2 - 1.3 mg/dL GFR Estimate >90 >60 mL/min/1.73m2 CBC with platelets and differential Status: Abnormal Result Value Ref Range WBC Count 10.8 4.0 - 11.0 10e3/uL RBC Count 4.15 3.80 - 5.20 10e6/uL Hemoglobin 11.9 11.7 - 15.7 g/dL Hematocrit 38.0 35.0 - 47.0 % MCV 92 78 - 100 fL MCH 28.7 26.5 - 33.0 pg MCHC 31.3 (L) 31.5 - 36.5 g/dL RDW 12.8 10.0 - 15.0 % Platelet Count 319 150 - 450 10e3/uL % Neutrophils 65 % % Lymphocytes 24 % % Monocytes 8 % % Eosinophils 2 % % Basophils 0 % % Immature Granulocytes 1 % NRBCs per 100 WBC 0 <1 /100 Absolute Neutrophils 7.1 1.6 - 8.3 10e3/uL Absolute Lymphocytes 2.6 0.8 - 5.3 10e3/uL Absolute Monocytes 0.8 0.0 - 1.3 10e3/uL Absolute Eosinophils 0.2 0.0 - 0.7 10e3/uL Absolute Basophils 0.0 0.0 - 0.2 10e3/uL Absolute Immature Granulocytes 0.1 <=0.4 10e3/uL Absolute NRBCs 0.0 10e3/uL CBC with platelets and differential Status: Abnormal Narrative The following orders were created for panel order CBC with platelets and differential. Procedure Abnormality Status --------- ------ CBC with platelets and d...[[id number]] Abnormal Final result Please view results for these tests on the individual orders. documented in this encounter Plan of Treatment Not on filedocumented as of this encounter Procedures Procedure Name Priority Date/Time Associated Comments Diagnosis CBC WITH PLATELETS AND Routine 07/11/2022 12:56 Fatigue, R esults for this DIFFERENTIAL PM CDT unspecified type procedure a re in the results section. CBC WITH PLATELETS & Routine 07/11/2022 12:56 Fatigue, Res ults for this DIFFERENTIAL PM CDT unspecified type procedure a re in the results section. MONONUCLEOSIS SCREEN Routine 07/11/2022 12:56 Fatigue, Res ults for this PM CDT unspecified type procedure a re in the results section. COMPREHENSIVE Routine 07/11/2022 12:56 Fatigue, Results fo r this METABOLIC PANEL PM CDT unspecified type procedur e are in the results section. EKG 12-LEAD COMPLETE Routine 07/11/2022 12:30 Tachycardia Res ults for this W/READ - CLINICS PM CDT procedure a re in the results section. documented in this encounter Results (ABNORMAL) CBC with platelets and differential (07/11/2022 12:56 PM CDT) [facility] Method Time Signature WBC Count 10.8 4.0 - 07/12/2022 [facility] 11.0 2:23 PM CDT 10e3/uL RBC Count 4.15 3.80 - 07/12/2022 [facility] 5.20 2:23 PM CDT 10e6/uL Hemoglobin 11.9 11.7 - 07/12/2022 [facility] 15.7 g/dL 2:23 PM CDT Hematocrit 38.0 35.0 - 07/12/2022 [facility] 47.0 % 2:23 PM CDT MCV 92 78 - 100 07/12/2022 [facility] fL 2:23 PM CDT MCH 28.7 26.5 - 07/12/2022 [facility] 33.0 pg 2:23 PM CDT MCHC 31.3 (L) 31.5 - 07/12/2022 [facility] 36.5 g/dL 2:23 PM CDT RDW 12.8 10.0 - 07/12/2022 [facility] 15.0 % 2:23 PM CDT Platelet Count 319 150 - 450 07/12/2022 [facility] 10e3/uL 2:23 PM CDT % Neutrophils 65 % 07/12/2022 [facility] 2:23 PM CDT % Lymphocytes 24 % 07/12/2022 [facility] 2:23 PM CDT % Monocytes 8 % 07/12/2022 [facility] 2:23 PM CDT % Eosinophils 2 % 07/12/2022 [facility] 2:23 PM CDT % Basophils 0 % 07/12/2022 [facility] 2:23 PM CDT % Immature 1 % 07/12/2022 [facility] Granulocytes 2:23 PM CDT NRBCs per 100 0 <1 /100 07/12/2022 [facility] WBC 2:23 PM CDT Absolute 7.1 1.6 - 8.3 07/12/2022 [facility] Neutrophils 10e3/uL 2:23 PM CDT Absolute 2.6 0.8 - 5.3 07/12/2022 [facility] Lymphocytes 10e3/uL 2:23 PM CDT Absolute 0.8 0.0 - 1.3 07/12/2022 [facility] Monocytes 10e3/uL 2:23 PM CDT Absolute 0.2 0.0 - 0.7 07/12/2022 [facility] Eosinophils 10e3/uL 2:23 PM CDT Absolute 0.0 0.0 - 0.2 07/12/2022 [facility] Basophils 10e3/uL 2:23 PM CDT Absolute 0.1 <=0.4 07/12/2022 [facility] Immature 10e3/uL 2:23 PM CDT Granulocytes Absolute NRBCs 0.0 10e3/uL 07/12/2022 [facility] 2:23 PM CDT Specimen Anatomical Collection Method / Collection Time Recei ruth Time (Source) Location / Volume Laterality Blood STRUCTURE OF RIGHT Venipuncture / 07/11/2022 12:56 UPPER LIMB / Unknown PM CDT 12:56 PM CDT Unknown Pilar Escalante PA-C LAB - BLOOD ORDERABLES Performing Organization Address City/State/ZIP Code [place] [phone] [facility] [address] Lab (1st floor, no room number) (ABNORMAL) Comprehensive metabolic panel (BMP + Alb, Alk Phos, ALT, AST, Total. Bili, TP) (07/11/2022 12:56 PM CDT) [facility] Method Time Signature Sodium 138 133 - 144 07/12/2022 [facility] mmol/L 2:40 PM CDT Potassium 3.8 3.4 - 5.3 07/12/2022 [facility] mmol/L 2:40 PM CDT Chloride 105 94 - 109 07/12/2022 [facility] mmol/L 2:40 PM CDT Carbon Dioxide 27 20 - 32 07/12/2022 [facility] (CO2) mmol/L 2:40 PM CDT Anion Gap 6 3 - 14 07/12/2022 [facility] mmol/L 2:40 PM CDT Urea Nitrogen 10 7 - 30 07/12/2022 [facility] mg/dL 2:40 PM CDT Creatinine 0.71 0.52 - 07/12/2022 [facility] 1.04 mg/dL 2:40 PM CDT Calcium 8.3 (L) 8.5 - 10.1 07/12/2022 [facility] mg/dL 2:40 PM CDT Glucose 60 (L) 70 - 99 07/12/2022 [facility] mg/dL 2:40 PM CDT Alkaline 59 40 - 150 07/12/2022 [facility] Phosphatase U/L 2:40 PM CDT AST 10 0 - 45 U/L 07/12/2022 [facility] 2:40 PM CDT ALT 19 0 - 50 U/L 07/12/2022 [facility] 2:40 PM CDT Protein Total 7.5 6.8 - 8.8 07/12/2022 [facility] g/dL 2:40 PM CDT Albumin 3.4 3.4 - 5.0 07/12/2022 [facility] g/dL 2:40 PM CDT Bilirubin Total 0.3 0.2 - 1.3 07/12/2022 [facility] mg/dL 2:40 PM CDT GFR Estimate >90 >60 07/12/2022 [facility] mL/min/1.7 2:40 PM CDT 3m2 Comment: Effective October 14, 2021 eGF Rcr in adults is calculated using the 2020 CKD-EPI creatinine equation which includ es age and gender (Sarai et al., NEJM, DOI: 10.1056/JEAEzu4494200) Specimen Anatomical Collection Method / Collection Time Recei ruth Time (Source) Location / Volume Laterality Blood STRUCTURE OF RIGHT Venipuncture / 07/11/2022 12:56 UPPER LIMB / Unknown PM CDT 12:56 PM CDT Unknown Pilar Escalante PA-C LAB - BLOOD ORDERABLES Performing Organization Address City/State/ZIP Code Phon e Number OX LABORATORY [facility] [place], [place] [phone] [place] [facility] [address] [place] [address] Lab (no room number, 1st floor of clinic) OX LABORATORY [place], [place] [phone] [facility] [place] [phone] [place] [facility] [address] Lab (no room number, 1st floor of clinic) Mononucleosis screen (07/11/2022 12:56 PM CDT) [facility] gist Method Time Signature Mononucleosis Negative Negative [place] 07/11/2022 [facility] Screen 1:11 PM CDT Specimen Anatomical Collection Method / Collection Time Recei ruth Time (Source) Location / Volume Laterality Blood STRUCTURE OF RIGHT Venipuncture / 07/11/2022 12:56 UPPER LIMB / Unknown PM CDT 12:56 PM CDT Unknown Pilar Escalante PA-C LAB - BLOOD ORDERABLES Performing Organization Address City/State/ZIP Code Ph[place] [address] Lab [address] [facility] Lab (no room number, 1st floor of clinic) [place] [address], [phone] [facility] [address] [facility] Lab (no room number, 1st floor of clinic) EKG 12-lead complete w/read - Clinics (07/11/2022 12:30 PM CDT) Narrative This result has an attachment that is no t available. Pilar Escalante PA-C ECG ORDERABLES documented in this encounter Visit Diagnoses Diagnosis Persistent cough - Primary Cough Tachycardia Tachycardia, unspecified Fatigue, unspecified type Acute conjunctivitis of right eye, unspe cified acute conjunctivitis type Visit for suture removal Encounter for removal of sutures documented in this encounter Care Teams Talkback Host Relationship Specialty Start Date End Date No Ref-Primary, Physician PCP - General 07/04/22 documented as of this encounter
--- OUTSIDE RECORDS SUMMARY | 2022-07-23 15:13 | XMS_ITS | Clinical Summary ---
:2000 Author Organization [place] Address [facility] [place] [address] Care Team Providers Name Role Phone No Ref-Primary, Physician Primary Care Provider [phone] Allergies No known active allergies Medications Medication Sig Dispensed Refills Start Date End Date Status amphetamine-dextroamp 0 04/21/2022 Active hetamine (ADDERALL) 30 MG tablet amphetamine-dextroamp TAKE 1 TABLET BY 0 06/28/2022 Active hetamine (ADDERALL) MOUTH IN THE 20 MG tablet AFTERNOON escitalopram 0 06/15/2022 Active (LEXAPRO) 20 MG tablet KELNOR -35 0 06/10/2022 Ac tive MG-MCG tablet albuterol (PROAIR Inhale 2 puffs 18 g 0 07/04/2022 Active HFA/PROVENTIL into the lungs HFA/VENTOLIN HFA) 108 every 6 hours as (90 Base) MCG/ACT needed for inhalerIndications: shortness of Lower respiratory breath / dyspnea tract infection or wheezing benzonatate Take 1 capsule 30 capsule 0 07/04/2022 A ctive (TESSALON) 200 MG (200 mg) by capsuleIndications: mouth 3 times Cough daily as needed for cough fluticasone (FLOVENT Inhale 1 puff 12 g 0 07/11/2022 Active HFA) 110 MCG/ACT into the lungs 2 inhalerIndications: times daily Persistent cough amoxicillin-clavulana Take 1 tablet by 20 tablet 0 07/04/2022 07/14/2022 te (AUGMENTIN) mouth 2 times 875-125 MG daily for 10 tabletIndications: days Lower respiratory tract infection predniSONE Take 2 tablets 10 tablet 0 07/04/2022 07/09/2022 Ex pired (DELTASONE) 20 MG (40 mg) by mouth tabletIndications: daily for 5 days Throat pain, Lower respiratory tract infection trimethoprim-polymyxi Place 1-2 drops 5 mL 0 07/11/2022 0 07/18/2022 n b (POLYTRIM) into the right 59388-1.1 UNIT/ML-% eye 3 times ophthalmic daily for 7 days solutionIndications: Acute conjunctivitis of right eye, unspecified acute conjunctivitis type Active Problems No known active problems Encounters Date Type Specialty Care Team Description 07/11/2022 Office Visit Urgent Care Pilar Escalante Persistent cou gh (Primary Dx); SALINA Urena Tachycardia; Fatigue, unspec ified type; Acute conjuncti vitis of right eye, unspecified acute conjunctivitis type; Visit for sutur e removal 07/11/2022 Travel 07/04/2022 Ancillary Procedure Radiology. Herman Sanches MD Cough 07/04/2022 Office Visit Urgent Care Herman Sanches MD Throat pain (Primary Dx); Cough; Lower respirato ry tract infection 07/04/2022 Travel from Last 3 Months Social History Tobacco Use Types Packs/Day Years Used Date Never Smoker Smokeless Tobacco: Never Used Sex Assigned at Date Recorded Not on file COVID-19 Exposure Response Date Recorded In the last 10 days, have you been in contact with No / Unsu re 07/11/2022 11:46 AM CDT someone who was confirmed or suspected to have Coronavirus/COVID-19? Last Filed Vital Signs Vital Sign Reading [...] - - Body Mass Index - - Plan of Treatment Health Maintenance Due Date Last Done Comments ADVANCE CARE PLANNING 2001 ANNUAL REVIEW OF HM ORDERS 2001 CHLAMYDIA SCREENING 2001 PREVENTIVE CARE VISIT 2001 HIV SCREENING 2016 HEPATITIS C SCREENING 2019 DTAP/TDAP/TD IMMUNIZATION 12/01/2020 05/31/2020, 06/30/2012 (3 - Td or Tdap) COVID-19 Vaccine (3 - 05/06/2021 03/11/2021, 02/11/2021 Booster for Moderna series) PHQ-2 (once per calendar 10/25/2021 year) PAP 2022 INFLUENZA VACCINE (#1) 2022 11/02/2017, 11/02/2017, 07/10/2013, Additional history exists HPV IMMUNIZATION Completed 07/10/2013, 09/02/2012, 06/30/2012 HEPATITIS B IMMUNIZATION Aged Out No long er eligible based on patient 's age to complete this topic IPV IMMUNIZATION Aged Out No longer eligi ble based on patient 's age to complete this topic MENINGITIS IMMUNIZATION Aged Out No longe r eligible based on patient 's age to complete this topic Pneumococcal Vaccine: Aged Out No longer eligible Pediatrics (0 to 5 Years) based on patient's age and At-Risk Patients (6 to to co mplete this topic 64 Years) Procedures Procedure Name Priority Date/Time Associated Comments Diagnosis CBC WITH PLATELETS & Routine 07/11/2022 12:56 Fatigue, Res ults for this DIFFERENTIAL PM CDT unspecified type procedure a re in the results section. CBC WITH PLATELETS AND Routine 07/11/2022 12:56 Fatigue, R esults for this DIFFERENTIAL PM CDT unspecified type procedure a re in the results section. COMPREHENSIVE Routine 07/11/2022 12:56 Fatigue, Results fo r this METABOLIC PANEL PM CDT unspecified type procedur e are in the results section. MONONUCLEOSIS SCREEN Routine 07/11/2022 12:56 Fatigue, Res ults for this PM CDT unspecified type procedure a re in the results section. EKG 12-LEAD COMPLETE Routine 07/11/2022 12:30 Tachycardia Res ults for this W/READ - CLINICS PM CDT procedure a re in the results section. XR CHEST 2 VIEWS Routine 07/04/2022 3:47 PM Cough Resul ts for this CDT procedure are i n the results section. GROUP A STREPTOCOCCUS Early AM 07/04/2022 3:04 PM Throat pain Results for this PCR THROAT SWAB CDT procedure ar e in the results section. STREPTOCOCCUS A RAPID Today 07/04/2022 3:04 PM Throat pain Results for this SCREEN W REFELX TO PCR CDT proce dure are in the results section. from Last 3 Months Results (ABNORMAL) CBC with platelets and differential (07/11/2022 12:56 PM CDT) [facility] Method Time Signature WBC Count 10.8 4.0 [...] Address City/State/ZIP Code [place] [address] [facility] Lab [address] Lab (1st floor, no room number) Mononucleosis screen (07/11/2022 12:56 PM CDT) [facility] gist Method Time Signature Mononucleosis Negative Negative [...] Address City/State/ZIP Code [place] [address] [facility] Lab (no room number, 1st floor of clinic) [place] [address], [facility] [address] [facility] Lab (no room number, 1st floor of clinic) (ABNORMAL) Comprehensive metabolic panel (BMP + Alb, Alk Phos, ALT, AST, Total. Bili, TP) (07/11/2022 12:56 PM CDT) [facility] Method Time Signature Sodium 138 133 - [...] and gender (Sarai et al., NEJM, DOI: 10.1056/[id number]) Specimen Anatomical Collection Method / Collection Time Recei ruth Time (Source) Location / Volume Laterality Blood STRUCTURE OF RIGHT Venipuncture / 07/11/2022 12:56 UPPER LIMB / Unknown PM CDT 12:56 PM CDT Unknown Pilar Escalante PA-C LAB - BLOOD ORDERABLES Performing Organization Address City/State/ZIP Code Phon e Number OX LABORATORY [facility] [place], [place] [phone] [facility] [address] [place] [address] Lab (no room number, 1st floor of clinic) OX LABORATORY [place], [place] [phone] [facility] [address], [facility] [place] [facility] [address] Lab (no room number, 1st floor of clinic) EKG 12-lead complete w/read - Clinics (07/11/2022 12:30 PM CDT) Narrative This result has an attachment that is no t available. Pilar Escalante PA-C ECG ORDERABLES XR Chest 2 Views (07/04/2022 3:47 PM CDT) Anatomical Region Laterality Modality Chest Computed Radiography Specimen (Source) Anatomical Collection Method Collection Time Re ceived Time Location / / Volume Laterality 07/04/2022 3:47 PM CDT Impressions 07/04/2022 8:47 PM CDT IMPRESSION: Negative chest. Narrative 07/04/2022 8:47 PM CDT EXAM: XR CHEST 2 VIEWS LOCATION: [facility] DATE/TIME: 07/04/2022 3:47 PM INDICATION: cough COMPARISON: None. Procedure Note Bere Irizarry MD - 07/04/2022Forma tting of this note might be different from the original. EXAM: XR CHEST 2 VIEWS LOCATION: [facility] DATE/TIME: 07/04/2022 3:47 PM INDICATION: cough COMPARISON: None. IMPRESSION: Negative chest. Herman Sanches MD IMG DIAGNOSTIC IMAGING ORDER FOSTER Streptococcus A Rapid Screen w/Reflex to PCR [...] MICRO GENERAL ORDERABL ES Performing Organization Address [facility] Phon [place] [address] [facility] Lab (no room number, 1st floor of clinic) [place] [address], [facility] [address] [facility] Lab (no room number, 1st floor of clinic) Group A Streptococcus PCR Throat Swab (07/04/2022 [...] Xpress Strep A test, performed on the [employer], is a rapid, qualitative in [...] MICRO GENERAL ORDERABL ES Performing Organization Address City/[facility] Phon e Number [facility] [place] [address] [address] Lab [address] [facility], [address] from Last 3 Months Insurance Payer Benefit Plan / Subscriber ID Effective Phone Address T ype Group Dates [facility] [id number] 2022-Jaz [phone] [address] [facility] [address] [place] [address] Care Teams Warehouse Person Relationship Specialty Start Date End Date No Ref-Primary, Physician PCP - General 07/04/22
[2022-07-23 16:29] LABS: Mono Screen* Negative (Negative)
[2022-07-23 16:43] VITALS: BP 94/56; PULSE 88; RESP 16; TEMP 37; O2SAT 99
[2022-07-23] MEDS: KETOROLAC 30 MG/ML inj IVP (17:13)
[2022-07-23] MEDS: cefTRIAXone 1 GM in 0.9 % SODIUM CHLORIDE Mini-bag 100 ML IVPB (17:14)
[2022-07-23 18:21] VITALS: BP 93/55; PULSE 79; RESP 20; O2SAT 99
[2022-07-23 18:22] VITALS: BP 93/55; PULSE 79; RESP 20; TEMP 37.1
== END 2022-07-23 18:23 | disposition home or self-care (01) ==
PROVIDERS: Emergency Provider Emergency Medicine Emergency Medical Services
DX: J03.90 Acute tonsillitis, unspecified (principal)
CPT/HCPCS: 36415; 70491; 80048; 83605; 85025; 86308; 87040; 96365; 96375; 99284; 99285; J0696; J1170; J1885; J2405; J7120; Q9967

== ENCOUNTER 2022-07-29 13:46 | Outpatient (CLI) | payer OTHER, SELFPAY ==
--- OUTSIDE RECORDS SUMMARY | 2022-07-29 13:50 | XMS_ITS | Encounter Summary ---
:2001 Author Organization [place] Address [facility] [place] [address] Care Team Providers Name Role Phone No Ref-Primary, Physician Primary Care Provider [phone] Reason for Visit Diagnostic Imaging XR (Routine) - Pending Review Specialty Diagnoses / Procedures Referred By Contact Refer red To Contact Diagnoses Cough Herman Sanches MD Procedures XR Chest [address] [place] [address] [place]NDE[place] [address] Referral ID Status Reason Start Date Expiration Date Visits V isits Requested Authorized [id number] Pending 07/04/2022 07/04/2023 1 1 Review Encounter Details Date Type Department Care Team Description 07/04/2022 Ancillary Procedure [facility] Devyn aSnches MD [facility] [address] [place] [address] [phone] Social History Tobacco Use Types Packs/Day Years [...] CDT EXAM: XR CHEST 2 VIEWS LOCATION: [facility] DATE/TIME: 07/04/2022 3:47 PM INDICATION: cough COMPARISON: None. Procedure Note Bere Irizarry MD - 07/04/2022Forma tting of this note might be different from the original. EXAM: XR CHEST 2 VIEWS LOCATION: [facility] DATE/TIME: 07/04/2022 3:47 PM INDICATION: cough COMPARISON: None. IMPRESSION: Negative chest. Herman Sanches MD IMG DIAGNOSTIC IMAGING ORDER FOSTER documented in this encounter Visit Diagnoses Diagnosis Cough documented in this encounter Care Teams Team Leader Relationship Specialty Start Date End Date No Ref-Primary, Physician PCP - General 07/04/22 documented as of this encounter
--- OUTSIDE RECORDS SUMMARY | 2022-07-29 13:50 | XMS_ITS | Clinical Summary ---
:2001 Author Organization [facility] [place] [address] Care Team Providers Name Role Phone Pcp, [...] Comments Blood Pressure 94/64 01/03/2021 8:41 AM FLIGHT INSTRUCTOR Pulse 62 01/03/2021 8:41 AM FLIGHT INSTRUCTOR Temperature 36.8 ??C (98.2 ??F) 01/03/2021 8:41 AM FLIGHT INSTRUCTOR Respiratory Rate - - Oxygen Saturation - - Inhaled Oxygen Concentration - - Weight 51 kg (112 lb 6.4 oz) 01/03/2021 8:41 AM FLIGHT INSTRUCTOR Height 157.5 cm (5' 2) 01/03/2021 8:41 AM FLIGHT INSTRUCTOR Body Mass Index 20.56 01/03/2021 8:41 AM FLIGHT INSTRUCTOR Plan of Treatment Health Maintenance Due Date [...] Effective Dates Phone Addre ss Type Group [facility] [id number] 2020-Present [address] [address] [place] [address] Care Teams Election Clerk Relationship Specialty Start Date End Date Pcp, No PCP - General 01/01/21 .
--- OUTSIDE RECORDS SUMMARY | 2022-07-29 13:50 | XMS_ITS | Encounter Summary ---
:2001 Author Organization [place] Address [address] [facility] [place] [address] Care Team Providers Name Role Phone No Ref-Primary, Physician Primary Care Provider [phone] Reason for Visit Reason Comments URI Coughing not improving, righ t eye, stitch removal left thumb- sinus infection Encounter Details Date Type Department Care Team Description 07/11/2022 Office Visit [facility] Pilar Escalante t cough (Primary Dx); [facility] Urena PA-C Tachycardia; [address] Fatigue, unspecified type; [place], [place] Acute conjunc tivitis of right eye, unspecified acute conjunctivitis type; [address] Visit for suture removal [phone] Social History Tobacco Use Types Packs/Day Years [...] sent through Care Everywhere. Conjunctivitis, What Is? (Qatari)Stitches/Staple Removal, No Complication (Qatari)documented in this encounter Progress Notes Pilar Escalante [...] symptoms. Patient agrees. - trimethoprim-polymyxin b (POLYTRIM) 00391-3.1 UNIT/ML-% ophthalmic solution Dispense: 5 mL; Refill: [...] Symptoms failing to improve. Pilar Escalante PA-C [facility] Nancy Maldonado is a 22 year old [...] the left thumb. Sutures put in 07/04 [facility] ED Review of Systems Constitutional, HEENT, cardiovascular, [...] Status --------- ------ CBC with platelets and d...[[id number]] Abnormal Final result Please view results for [...] platelets and differential (07/11/2022 12:56 PM CDT) [facility] Method Time Signature WBC Count 10.8 4.0 [...] Address City/State/ZIP Code [place] [phone] Care Lab [address] Lab (1st floor, no room number) (ABNORMAL) Comprehensive metabolic panel (BMP + Alb, Alk Phos, ALT, AST, Total. Bili, TP) (07/11/2022 12:56 PM CDT) [facility] Method Time Signature Sodium 138 133 - [...] and gender (Sarai et al., NEJM, DOI: 10.1056/[id number]) Specimen Anatomical Collection Method / Collection Time Recei ruth Time (Source) Location / Volume Laterality Blood STRUCTURE OF RIGHT Venipuncture / 07/11/2022 12:56 UPPER LIMB / Unknown PM CDT 12:56 PM CDT Unknown Pilar Escalante PA-C LAB - BLOOD ORDERABLES Performing Organization Address City/State/ZIP Code Phon e Number OX LABORATORY [facility] [place], [place] [phone] [place] [facility] [address] [place] [address] Lab (no room number, 1st floor of clinic) OX LABORATORY [place], [place] [phone] [facility] [place] [phone] [place] [facility] [address] Lab (no room number, 1st floor of clinic) Mononucleosis screen (07/11/2022 12:56 PM CDT) [facility] gist Method Time Signature Mononucleosis Negative [...] City/State/ZIP Code Phon [place] [address] Lab [address] [facility] Lab (no room number, 1st floor of clinic) [place] [address], [facility] [address] [facility] Lab (no room number, 1st floor [...] sutures documented in this encounter Care Teams Vamp Strap Ironer Relationship Specialty Start Date End Date No Ref-Primary, Physician PCP - General 07/04/22 documented as of this encounter
--- OUTSIDE RECORDS SUMMARY | 2022-07-29 13:50 | XMS_ITS | Encounter Summary ---
:2001 Author Organization [place] Address [address] [place] [address]. [place] [address] Care Team Providers Name Role Phone No Ref-Primary, Physician Primary Care Provider [phone] Encounter Details Date Type Department Care Team [...] on filedocumented in this encounter Care Teams Potato Chip Sacking Machine Operator Relationship Specialty Start Date End Date No Ref-Primary, Physician PCP - General 07/04/22 documented as of this encounter
--- OUTSIDE RECORDS SUMMARY | 2022-07-29 13:50 | XMS_ITS | Clinical Summary ---
:2001 Author Organization [place] Address [facility] [address] Care Team Providers Name Role Phone No Ref-Primary, Physician Primary Care Provider Allergies No known active allergies Medications Medication [...] 07/18/2022 n b (POLYTRIM) into the right 71187-4.1 UNIT/ML-% eye 3 times ophthalmic daily for [...] exists HPV IMMUNIZATION Completed 07/10/2013, 09/02/2012, 06/30/2012 MENINGITIS IMMUNIZATION Completed 06/10/2017, 06/30/2012 HEPATITIS B IMMUNIZATION Aged Out No [...] Organization Address City/State/ZIP Code [place] [address] [facility] Lab [address] Lab (1st floor, no room number) Mononucleosis screen (07/11/2022 12:56 PM CDT) [facility] gist Method Time Signature Mononucleosis Negative [...] Address City/State/ZIP Code [place] [address] [address] [facility] Lab (no room number, 1st floor of clinic) [place] [address], [facility] Lab [facility] [address] [facility] Lab (no room number, 1st floor of [...] and gender (Sarai et al., NEJM, DOI: [id number]/[id number]) Specimen Anatomical Collection Method / Collection Time Recei ruth Time (Source) Location / Volume Laterality Blood STRUCTURE OF RIGHT Venipuncture / 07/11/2022 12:56 UPPER LIMB / Unknown PM CDT 12:56 PM CDT Unknown Pilar Escalante PA-C LAB - BLOOD ORDERABLES Performing Organization Address City/State/ZIP Code Phon e Number OX LABORATORY [facility] - [place], [place] [phone] [place] [facility] [address] [place] [address] Lab (no room number, 1st floor of clinic) OX LABORATORY [place], [place] [phone] [facility] [place] [phone] [place] [facility] [address] Lab (no room number, 1st floor [...] CDT EXAM: XR CHEST 2 VIEWS LOCATION: [facility] DATE/TIME: 07/04/2022 3:47 PM INDICATION: cough COMPARISON: None. Procedure Note Bere Irizarry MD - 07/04/2022Forma tting of this note might be different from the original. EXAM: XR CHEST 2 VIEWS LOCATION: [facility] DATE/TIME: 07/04/2022 3:47 PM INDICATION: cough [...] MICRO GENERAL ORDERABL ES Performing Organization Address [facility] Phon [place] [address] [facility] Lab (no room number, 1st floor of clinic) [place] [address], [facility] [address] [facility] Lab (no room number, 1st floor of [...] Xpress Strep A test, performed on the Expedic[employer].mx?? Instrument Systems, is a rapid, qualitative in [...] MICRO GENERAL ORDERABL ES Performing Organization Address City/[facility]/ZIP Code Phon e Number UU IDD LABORATORY [facility] [place] [address] Diag. Lab [address] [facility], Room [address]297 from Last 3 Months Insurance Payer Benefit Plan / Subscriber ID Effective Phone Address T ype Group Dates [facility] [id number] 2022-aJz [phone] [address] [facility] [address] [place] [address] Care Teams Infantry Assaultman Relationship Specialty Start Date End Date No Ref-Primary, Physician PCP - General 07/04/22
--- OUTSIDE RECORDS SUMMARY | 2022-07-29 13:51 | XMS_ITS ---
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), inattentive type Problem HENRY (generalized F41.1 Active 218 86471 anxiety disorder) ALLERGIES No Known Allergies ENCOUNTERS Encounter Location Date Diagnosis [facility] [address] Jul, [place] [address] [facility] [address] 10[address] Jun, HENRY (ge neralized anxiety [place] disorder) F41.1 [address] [facility] [address] 10[address] Jun, [place] [address] [facility] [address] 10[address] Jun, [place] [address] [facility] [address] 10[address] Jun, ADHD (a ttention deficit [place] hyperactivity [place]order), [address] inattentive type F90.0 and HENRY (generalized anxiety disorder) F41.1 [facility] [address] Mar, [place] [address] [facility] [address] 10[address] Mar, ADHD (a ttention deficit [place] hyperactivity [place]order), [address] inattentive type F90.0 and HENRY (generalized anxiety disorder) F41.1 [facility] [address] 10[address] Jan, ADHD (a ttention deficit [place] hyperactivity [place]order), [address] inattentive type F90.0 and HENRY (generalized anxiety disorder) F41.1 [facility] [address] 10th Dec, ADHD (a ttention deficit [place] hyperactivity [place]order), [address] inattentive type F90.0 and HENRY (generalized anxiety disorder) F41.1 [facility] [address] 10[address] Nov, 2021 [place] [address] [facility] [address] 10[address] Nov, 2021 [place] [address] [facility] [address] 10[address] Nov, 2021 [place] [address] [facility] [address] 10th Nov, ADHD (a ttention deficit [place] hyperactivity [place]order), [address] inattentive type F90.0 and HENRY (generalized anxiety disorder) F41.1 [facility] [address] 10th Oct, ADHD (a ttention deficit [place] hyperactivity [place]order), [address] inattentive type F90.0 and HENRY (generalized anxiety disorder) F41.1 [facility] [address] [place] 215 Sep, A DHD (attention deficit [place] hyperactivity di sorder), [address] inattentive type F90.0 and HENRY (generalized anxiety disorder) F41.1 [facility] [address] 10th Aug, HENRY (ge neralized anxiety [place] disorder) F41.1 [address] [facility] [address] 10th Aug, ADHD (a ttention deficit [place] hyperactivity [place] isorder), [address] inattentive type F90.0 and HENRY (generalized anxiety disorder) F41.1 [facility] [place] [address] [place] Aug, [place] [address] [place] [address] [facility] [address] 10[address] Aug, [place] [address] [facility] [address] 10[address] Aug, [place] [address] [facility] [address] 10[address] Jul, HENRY (ge neralized anxiety [place] disorder) F41.1 and ADHD [address] (attention defic it hyperactivity di sorder), inattentive type F90.0 [facility] [address] 10th Jul, ADHD (a ttention deficit [place] hyperactivity [place] isorder), [address] inattentive type F90.0 and HENRY (generalized anxiety disorder) F41.1 [facility] [place] [address] 10th Jun, ADHD (a ttention deficit [place] hyperactivity [place]order), [address] inattentive type F90.0 and HENRY (generalized anxiety disorder) F41.1 [facility] [address] 10th May, ADHD (a ttention deficit [place] hyperactivity [place]order), [address] inattentive type F90.0 and HENRY (generalized anxiety disorder) F41.1 [facility] [address] 10[address] Apr, ADHD (a ttention deficit [place] hyperactivity [place] isorder), [address] inattentive type F90.0 and HENRY (generalized anxiety disorder) F41.1 [facility] [place] [address] [place] Apr, [address] [place] [address] IMMUNIZATIONS No Known Immunizations SOCIAL HISTORY Never Assessed REASON FOR REFERRAL FUNCTIONAL STATUS PLAN OF CARE Activity Details Follow Up 3 Months Reason: Future Appointment Provider Name:Danae Barrett, 2022-08-10 10:40:00 AM, [address] 10th floor, [place], [address], VITAL SIGNS Height 5'3 in 2021-08-12 Height [...] Orally Once a 1 tablet 24h Jul, 30 days No t-Taki day in the 2020 morning Adderall 20 MG Orally in the 1 tablet Mar, days Ac tive afternoon 2021 Adderall 20 [...] Apr, 30 days Ac tive morning 2021 Concerta 54 MG Orally Once a 1 tablet 24h Aug, 30 days No t-Taki day in the 2020 ng morning Adderall 20 MG Orally in the 1 tablet Dec, 30 days Ac tive afternoon 2021 Adderall 30 MG Orally in the 1 tablet Mar, 30 days Ac tive morning 2021 Adderall 20 MG Orally in the 1 tablet Mar, 30 days Ac tive afternoon 2021 Adderall 30 MG Orally in the 1 tablet Apr, 30 days Ac tive morning 2021 Adderall 20 MG Orally in the 1 tablet May, 30 days Ac tive afternoon 2021 Methylphenidate Orally Once a 1 tablet 24h Aug, 30 days N ot-Taki HCl ER 54 MG day in the 2021 ng morning Lexapro 20 MG Orally Once a 1 tablet 24h 30 day(s) A ct day Adderall 20 MG Orally in the 1 tablet Jun, 30 days Ac tive afternoon 2021 PROCEDURES Procedure [...] 2021 RESULTS No Results REASON FOR VISIT *Cancel due to [facility], *EST Pt, ePrescription CancelRx response, Rx refill, ePrescription CancelRxresponse, ePrescription CancelRx response, Adderall Refill Request, Lexapro inc, *EST Pt, *EST Pt, refill request, Telepysch, *Cancel due to [facility] miscommunication over telepsych, ePrescription CancelRx response, ePrescription CancelRx response, ePrescription CancelRx response, transfer pharmacy, *EST Pt, I finished the , [facility], *R/S due to [facility], I have beendoing really good, *R/S due to [facility], rx questions, ePrescription CancelRx response, rx refill, Pharmacy Transfer, I don't think my antidepressants are working, so far so good, everything is going well, I'm in need of a refill, Rx History Insurance Providers [facility] Health Member Patient Patient Patient Patient Patient Subscriber Subscriber Subscriber Group Insurance Plan Plan Plan Plan ID Relationship Address Phone Name Date of ID Name Date of No Type Insurance Insurance Insurance Coverage to Subscriber Address Phone Name Dates [employer] [phone] [facility] [id number] [address]
--- OUTSIDE RECORDS SUMMARY | 2022-07-29 13:51 | XMS_ITS | Encounter Summary ---
:2001 Author Organization [place] Address [address] [place] [address]. [place] [address] Care Team Providers Name Role Phone No Ref-Primary, Physician Primary Care Provider [phone] Encounter Details Date Type Department Care [...] on filedocumented in this encounter Care Teams Research Chemical Engineer Relationship Specialty Start Date End Date No Ref-Primary, Physician PCP - General 07/04/22 documented as of this encounter
--- OUTSIDE RECORDS SUMMARY | 2022-07-29 13:51 | XMS_ITS | Encounter Summary ---
:2001 Author Organization [facility] Address [address] [place] [address] Care Team Providers Name Role Phone No Ref-Primary, Physician Primary Care Provider [phone] Reason for Referral Diagnostic Imaging XR (Routine) - Pending Review Specialty Diagnoses / Procedures Referred By Contact Refer red To Contact Diagnoses Herman Neumann MD Procedures XR Chest 2 Views [address] [facility] [place] [address] Referral ID Status Reason Start Date Expiration Date Visits V isits Requested Authorized [id number] Pending 07/04/2022 07/04/2023 1 1 Review Reason [...] Department Care Team Description 07/04/2022 Office Visit [facility] Herman Sanches M D Throat pain (Primary Dx); Urgent Care [facility] [address] [facility] Cough; [address] [facility] Lower respiratory tract infection [place] [address] [phone] Social History Tobacco Use Types Packs/Day Years [...] through Care Everywhere. Bronchitis, Antibiotic Treatment (Adult) (Cymraes)documented in this encounter Progress Notes Herman Sanches MD - 07/04/2022 2:10 PM CDT SUBJECTIVE: New patient to [facility] Erica De La Cruz is a 22 [...] bad as her Exposed to mold at [facility] Medical history - anxiety, ADHD History reviewed. [...] CDT EXAM: XR CHEST 2 VIEWS LOCATION: [facility] DATE/TIME: 07/04/2022 3:47 PM INDICATION: cough COMPARISON: None. Procedure Note Bere Irizarry MD - 07/04/2022Forma tting of this note might be different from the original. EXAM: XR CHEST 2 VIEWS LOCATION: [facility] [place] DATE/TIME: 07/04/2022 3:47 PM INDICATION: [...] Xpress Strep A test, performed on the Cryptonator?? Instrument Systems, is a rapid, qualitative in [...] Code Phon e Number UU IDD LABORATORY [facility] [place] [address] Diag. Lab [address] [facility], Room D297 Streptococcus A Rapid Screen [...] Address City/State/ZIP Code [place] [address] Lab [address] [facility] Lab (no room number, 1st floor of clinic) [place] [address], [facility] [address] [facility] Lab (no room number, 1st floor of clinic) documented in this encounter Visit Diagnoses Diagnosis Throat pain - Primary Cough Lower respiratory tract infection Other diseases of respiratory system, no t elsewhere classified Cough documented in this encounter Care Teams Outside Plant Cable Engineer Relationship Specialty Start Date End Date No Ref-Primary, Physician PCP - General 07/04/22 documented as of this encounter
[2022-07-29 16:12] LABS: INR 0.88 (0.91-1.10); Partial Thromboplastin Time* 30 Seconds (23-33); Prothrombin Time 12.3 Seconds
== END 2022-07-29 13:47 | disposition home or self-care (01) ==
PROVIDERS: Visit Provider Otolaryngology
DX: R07.0 Pain in throat (principal)
CPT/HCPCS: 85610; 85730

== ENCOUNTER 2022-08-05 15:23 | Outpatient (CLI) | payer OTHER, SELFPAY ==
--- OUTSIDE RECORDS SUMMARY | 2022-08-05 15:24 | XMS_ITS ---
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), inattentive type Problem HENRY (generalized F41.1 Active 218 48929 anxiety disorder) ALLERGIES No Known Allergies ENCOUNTERS Encounter Location Date Diagnosis [facility] [address] Jul, [place] [address] [facility] [address] 10th Jun, HENRY (ge neralized anxiety [place], [place] disorder) F41.1 [address] [facility] [address] 10[address] Jun, [place] [address] [facility] [address] 10[address] Jun, [place] [address] [facility] [address] 10th Jun, ADHD (a ttention deficit [place] hyperactivity [place]order), [address] inattentive type F90.0 and HENRY (generalized anxiety disorder) F41.1 [facility] [address] 10[address] Mar, [place] [address] [facility] [address] 10th Mar, ADHD (a ttention deficit [place] hyper[place]order), [address] inattentive type F90.0 and HENRY (generalized anxiety disorder) F41.1 [facility] [address] 10th Jan, ADHD (a ttention deficit [place] hyper[place]order), [address] inattentive type F90.0 and HENRY (generalized anxiety disorder) F41.1 [facility] [address] 10th Dec, ADHD (a ttention deficit [place] hyperactivity [place]order), [address] inattentive type F90.0 and HENRY (generalized anxiety disorder) F41.1 [facility] [address] 10[address] Nov, 2021 [place] [address] [facility] [address] 10[address] Nov, 2021 [place] [address] [facility] [address] 10th Nov, 2021 [place] [address] [facility] [address] 10th Nov, ADHD (a ttention deficit [place]), [address] inattentive type F90.0 and HENRY (generalized anxiety disorder) F41.1 [facility] [address] 10th Oct, ADHD (a ttention deficit [place]order), [address] inattentive type F90.0 and HENRY (generalized anxiety disorder) F41.1 [facility] [address] [place] 215 Sep, A DHD (attention deficit [place] hyper[place]), [address] inattentive type F90.0 and HENRY (generalized anxiety disorder) F41.1 [facility] [address] 10th Aug, HENRY (ge neralized anxiety [place] disorder) F41.1 [address] [facility] [address] 10th Aug, ADHD (a ttention deficit [place] hyper[place]order), [address] inattentive type F90.0 and HENRY (generalized anxiety disorder) F41.1 [facility] [address] [place] Aug, [address] [place] [address] [facility] [address] 10[address] Aug, [place] [address] [facility] [address] 10th Aug, [place] [address] [facility] [address] 10th Jul, HENRY (ge neralized anxiety [place] disorder) F41.1 and ADHD [address] (attention defic it hyperactivity di sorder), inattentive type F90.0 [facility] [address] 10th Jul, ADHD (a ttention deficit [place] hyperactivity [place]order), [address] inattentive type F90.0 and HENRY (generalized anxiety disorder) F41.1 [facility] [address] 10th Jun, ADHD (a ttention deficit [place] hyperactivity [place]order), [address] inattentive type F90.0 and HENRY (generalized anxiety disorder) F41.1 [facility] [address] 10th May, ADHD (a ttention deficit [place] hyper[place]order), [address] inattentive type F90.0 and HENRY (generalized anxiety disorder) F41.1 [facility] [address] 10th Apr, ADHD (a ttention deficit [place] hyper[place]order), [address] inattentive type F90.0 and HENRY (generalized anxiety disorder) F41.1 [facility] [address] [place] Apr, [address] [place] [address] IMMUNIZATIONS No Known Immunizations SOCIAL HISTORY Never Assessed REASON FOR REFERRAL FUNCTIONAL STATUS PLAN OF CARE Activity Details Follow Up 3 Months Reason: Future Appointment Provider Name:Danae Barrett, 2022-08-10 10:40:00 AM, [address] 10th floor, [place], [address], VITAL SIGNS Height 5'3 in 2021-08-12 Height [...] pharmacy, *EST Pt, I finished the , [facility]- pharmacy, *R/S due to [facility], I have beendoing really good, *R/S due to [facility], rx questions, ePrescription CancelRx response, rx refill, Pharmacy Transfer, I don't think my antidepressants are working, so far so good, everything is going well, I'm in need of a refill, Rx History Insurance Providers [facility] Health Member Patient Patient Patient Patient Patient Subscriber Subscriber Subscriber Group Insurance Plan Plan Plan Plan ID Relationship Address Phone Name Date of ID Name Date of No Type Insurance Insurance Insurance Coverage to Subscriber Address Phone Name Dates [employer] [phone] [facility] [id number] [address]
[2022-08-05 17:18] LABS: INR 0.98 (0.91-1.10); Prothrombin Time 13.4 Seconds
== END 2022-08-05 15:24 | disposition home or self-care (01) ==
PROVIDERS: Otolaryngology
DX: R07.0 Pain in throat (principal)
CPT/HCPCS: 85610

== ENCOUNTER 2022-08-21 14:52 | Outpatient (CLI) | payer OTHER, SELFPAY ==
--- OUTSIDE RECORDS SUMMARY | 2022-08-21 14:56 | XMS_ITS | Encounter Summary ---
:2001 Author Organization [facility] Address [address] [place] [address]. [place] [address] Care Team Providers Name Role Phone No Ref-Primary, Physician Primary Care Provider [phone] Encounter Details Date Type Department Care Team Description 07/11/2022 Travel Social History Tobacco Use Types Packs/Day Years Used Date Smoking Tobacco: Never Smokeless Tobacco: Never Sex Assigned at Date Recorded Not on [...] on filedocumented in this encounter Care Teams Pcat Instructor Relationship Specialty Start Date End Date No Ref-Primary, Physician PCP - General 07/04/22 documented as of this encounter
--- OUTSIDE RECORDS SUMMARY | 2022-08-21 14:56 | XMS_ITS | Encounter Summary ---
:2001 Author Organization [facility] Address [address] [place] [address] Care Team Providers Name Role Phone No Ref-Primary, Physician Primary Care Provider Reason for Referral Diagnostic Imaging XR (Routine) - Pending Review Specialty Diagnoses / Procedures Referred By Contact Refer red To Contact Diagnoses Herman Neumann MD Procedures XR Chest 2 Views [address] [facility] [place] [address] Referral ID Status Reason Start Date Expiration Date Visits V isits Requested Authorized [id number] Pending 07/04/2022 07/04/2023 1 1 Review Reason [...] Department Care Team Description 07/04/2022 Office Visit [facility] Herman Sanches M D Throat pain (Primary Dx); Urgent Care [facility] [address] [facility] Cough; [address] [facility] Lower respiratory tract infection [place], [place] [address] Social History Tobacco Use Types Packs/Day Years [...] through Care Everywhere. Bronchitis, Antibiotic Treatment (Adult) (Martiniquais)documented in this encounter Progress Notes Herman Sanches MD - 07/04/2022 2:10 PM CDT SUBJECTIVE: New patient to [facility] Erica De La Cruz is a 22 [...] bad as her Exposed to mold at [employer] Medical history - anxiety, ADHD History reviewed. [...] CDT EXAM: XR CHEST 2 VIEWS LOCATION: [facility] DATE/TIME: 07/04/2022 3:47 PM INDICATION: cough COMPARISON: None. Procedure Note Bere Irizarry MD - 07/04/2022Forma tting of this note might be different from the original. EXAM: XR CHEST 2 VIEWS LOCATION: [facility] DATE/TIME: 07/04/2022 3:47 PM INDICATION: cough [...] Xpress Strep A test, performed on the [employer] Systems, is a rapid, qualitative in [...] Code Phon e Number [facility] [place] [address] [address]ag[address] [facility], Room D297 Streptococcus A Rapid Screen [...] Address City/State/ZIP Code [place] [address] Lab [address] [facility] Lab (no room number, 1st floor of clinic) [place] [address], [facility] [address] [facility] Lab (no room number, 1st floor of clinic) documented in this encounter Visit Diagnoses Diagnosis Throat pain - Primary Cough Lower respiratory tract infection Other diseases of respiratory system, no t elsewhere classified Cough documented in this encounter Care Teams School Clerk Relationship Specialty Start Date End Date No Ref-Primary, Physician PCP - General 07/04/22 documented as of this encounter
--- OUTSIDE RECORDS SUMMARY | 2022-08-21 14:56 | XMS_ITS | Encounter Summary ---
:2001 Author Organization [facility] Address [address] [place] [address]. [place] [address] Care Team Providers Name Role Phone No Ref-Primary, Physician Primary Care Provider [phone] Encounter Details Date Type Department Care [...] on filedocumented in this encounter Care Teams Safety Trainer Relationship Specialty Start Date End Date No Ref-Primary, Physician PCP - General 07/04/22 documented as of this encounter
--- OUTSIDE RECORDS SUMMARY | 2022-08-21 14:56 | XMS_ITS | Clinical Summary ---
:2001 Author Organization [facility] [place] [address] Care Team Providers Name Role Phone Pcp, [...] Comments Blood Pressure 94/64 01/03/2021 8:41 AM MEDICAL CLERK Pulse 62 01/03/2021 8:41 AM MEDICAL CLERK Temperature 36.8 ??C (98.2 ??F) 01/03/2021 8:41 AM MEDICAL CLERK Respiratory Rate - - Oxygen Saturation - - Inhaled Oxygen Concentration - - Weight 51 kg (112 lb 6.4 oz) 01/03/2021 8:41 AM MEDICAL CLERK Height 157.5 cm (5' 2) 01/03/2021 8:41 AM MEDICAL CLERK Body Mass Index 20.56 01/03/2021 8:41 AM MEDICAL CLERK Plan of Treatment Health Maintenance Due Date [...] Phone Addre ss Type Group [facility] [id number]-Present [address] [address] [place] [address] Care Teams Mess Cook Relationship Specialty Start Date End Date Pcp, No PCP - General 01/01/21 .
--- OUTSIDE RECORDS SUMMARY | 2022-08-21 14:56 | XMS_ITS ---
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), inattentive type Problem HENRY (generalized F41.1 Active 218 90849 anxiety disorder) ALLERGIES No Known Allergies ENCOUNTERS Encounter Location Date Diagnosis [facility] [address] 10[address] Jul, ADHD (a ttention deficit [place] hyperactivity [place]order), [address] inattentive type F90.0 and HENRY (generalized anxiety disorder) F41.1 [facility] [address] 10th Jul, [place] [address] [facility] [address] 10th Jun, HENRY (ge neralized anxiety [place] disorder) F41.1 [address] [facility] [address] 10th Jun, [place] [address] [facility] [address] 10th Jun, [place] [address] [facility] [address] 10th Jun, ADHD (a ttention deficit [place] hyperactivity d isorder), [address] inattentive type F90.0 and HENRY (generalized anxiety disorder) F41.1 [facility] [address] 10[address] Mar, [place] [address] [facility] [address] 10th Mar, ADHD (a ttention deficit [place]), [address] inattentive type F90.0 and HENRY (generalized anxiety disorder) F41.1 [facility] [address] 10th Jan, ADHD (a ttention deficit [place]), [address] inattentive type F90.0 and HENRY (generalized anxiety disorder) F41.1 [facility] [address] 10th Dec, ADHD (a ttention deficit [place]), [address] inattentive type F90.0 and HENRY (generalized anxiety disorder) F41.1 [facility] [address] Nov, 2021 [place] [address] [facility] [address] 10[address] Nov, [place] [address] [facility] [address] 10[address] Nov, 2021 [place] [address] [facility] [address] 10th Nov, ADHD (a ttention deficit [place]), [address] inattentive type F90.0 and HENRY (generalized anxiety disorder) F41.1 [facility] [address] 10th Oct, ADHD (a ttention deficit [place]), [address] inattentive type F90.0 and HENRY (generalized anxiety disorder) F41.1 [facility] [address] [place] 215 Sep, A DHD (attention deficit [place] hyperactivity di sorder), [address] inattentive type F90.0 and HENRY (generalized anxiety disorder) F41.1 [facility] [address] 10th Aug, HENRY (ge neralized anxiety [place] disorder) F41.1 [address] [facility] [address] 10th Aug, ADHD (a ttention deficit [place]order), [address] inattentive type F90.0 and HENRY (generalized anxiety disorder) F41.1 [facility] [address] [place] Aug, [address] [place] [address] [facility] [address] 10[address] Aug, [place] [address] [facility] [address] 10[address] Aug, [place] [address] [facility] [address] 10th Jul, HENRY (ge neralized anxiety [place] disorder) F41.1 and ADHD [address] (attention defic it hyperactivity di sorder), inattentive type F90.0 [facility] [address] 10th Jul, ADHD (a ttention deficit [place]order), [address] inattentive type F90.0 and HENRY (generalized anxiety disorder) F41.1 [facility] [address] 10th Jun, ADHD (a ttention deficit [place] [address] inattentive type F90.0 and HENRY (generalized anxiety disorder) F41.1 [facility] [address] 10th May, ADHD (a ttention deficit [place]), [address] inattentive type F90.0 and HENRY (generalized anxiety disorder) F41.1 [facility] [address] 10th Apr, ADHD (a ttention deficit [place]activity [place] isorder), [address] inattentive type F90.0 and HENRY (generalized anxiety disorder) F41.1 [facility] [address] [place] Apr, [address] [place] [address] IMMUNIZATIONS No Known Immunizations SOCIAL HISTORY Never Assessed REASON FOR REFERRAL FUNCTIONAL STATUS PLAN OF CARE Activity Details Follow Up 3 Months Reason: Future Appointment Provider Name:Danae Barrett, 2022-10-15 12:00:00 AM, [address] [facility], 10th floor, [place], [address], VITAL SIGNS Height 63 in 2022-08-10 Height 5'3 in 2021-08-12 Height 63 in in 2021-05-22 Weight 116.1 lbs 2022-08-10 Weight 111.8 lbs 2021-08-12 Weight 113.1 lbs 2021-05-22 BMI 20.56 kg/m2 2022-08-10 BMI 19.8 kg/m2 2021-08-12 BMI 20.03 kg/m2 2021-05-22 Respiratory Rate 16 /min 2022-08-10 Respiratory Rate 17 /min 2021-05-22 Heart Rate 64 /min 2022-08-10 Heart Rate 61 /min 2021-08-12 Heart Rate 71 /min 2021-05-22 Blood pressure systolic 118 mm Hg 2022-08-10 Blood pressure diastolic 78 mm Hg 2022-08-10 MEDICATIONS Medication Instructions Dosage Frequency Start End Duration Statu s Date Date Concerta 54 MG Orally Once a 1 tablet 24h Aug, 30 days No t-Taki day in the 2020 morning Methylphenidate Orally Once a 1 capsule 24h Aug, days Not-Taki HCl ER (LA) 30 MG day in the 2020 morning Lexapro 20 MG Orally Once a 1 tablet 24h 30 day(s) A ct day Adderall 20 MG Orally in the 1 tablet Sep, 30 days Ac tive afternoon 2021 Methylphenidate Orally Once a 1 tablet 24h Aug, 30 days N ot-Taki HCl ER 54 MG day in the 2020 ng morning Adderall 30 MG Orally in the 1 tablet Oct, 30 days Ac tive morning 2022 Adderall 20 MG Orally in the 1 tablet Nov, 30 days Ac tive afternoon 2022 Concerta 54 MG Orally Once a 1 tablet 24h Jul, 30 days No t-Taki day in the 2020 ng morning Adderall 20 MG Orally in the 1 tablet Oct, Ac tive afternoon 2022 Lexapro 20 MG Orally Once a 1.5 tablet 24h 90 days A ctive day Adderall 30 MG Orally in the 1 tablet Nov, days Ac tive morning 2022 Adderall 30 MG Orally in the 1 tablet Aug, Ac tive morning 2021 Adderall 20 MG Orally in the 1 tablet Jul, Ac tive afternoon 2021 Adderall 30 MG Orally in the 1 tablet Aug, Ac tive morning 2021 Adderall 30 MG Orally in the 1 tablet Jul, Ac tive morning 2021 Augmentin 500-125 Orally every 8 1 tablet 8h Active MG hrs Adderall 20 MG Orally in the 1 tablet Dec, Ac tive afternoon 2021 Adderall 20 MG Orally in the 1 tablet Sep, Ac tive afternoon 2021 PROCEDURES Procedure Date Ordered Result Body Site PSYTX PT&/FAM W/E&M 16-30 MIN Jul 01, 2021 PSYTX PT&/FAM W/E&M 16-30 MIN Jun 16, 2021 PSYTX PT&/FAM W/E&M 16-30 MIN Aug 10, 2022 PSYTX PT&/FAM W/E&M 45 MIN May 22, 2021 PSYTX PT&/FAM W/E&M 16-30 MIN Sep 16, 2021 PSYTX PT&/FAM W/E&M 16-30 MIN Oct 20, 2021 PSYTX PT&/FAM W/E&M 16-30 MIN Aug 12, 2021 PSYTX PT&/FAM W/E&M 16-30 MIN Nov 17, 2021 PSYTX PT&/FAM W/E&M 16-30 MIN January 26, 2022 PSYTX PT&/FAM W/E&M 16-30 MIN April 20, 2022 RESULTS No Results REASON FOR VISIT *EST Pt, *Cancel due to [facility], *EST Pt, ePrescription CancelRx response, Rx refill, ePrescriptionCancelRx response, ePrescription CancelRx response, Adderall Refill Request, Lexapro inc, *EST Pt, *EST Pt, refill request, Telepysch, *Cancel due to [facility] miscommunication over telepsych, ePrescript ion CancelRx response, ePrescription CancelRx response, ePrescription CancelRx response, transfer pharmacy, *EST Pt, I finished the , [facility]- pharmacy, *R/S due to [facility], I have been doing really good, *R/S due to [facility], rx questions, ePrescription CancelRx response, rx refill, Pharmacy Transfer, I don't think my antidepressants are working, so far so good, everything is going well, I'm in need of a refill, Rx History Insurance Providers [facility] Health Member Patient Patient Patient Patient Patient Subscriber Subscriber Subscriber Group Insurance Plan Plan Plan Plan ID Relationship Address Phone Name Date of ID Name Date of No Type Insurance Insurance Insurance Coverage to Subscriber Address Phone Name Dates [facility] [phone] [facility] [id number] [id number] [address]
--- OUTSIDE RECORDS SUMMARY | 2022-08-21 14:56 | XMS_ITS | Encounter Summary ---
:2001 Author Organization [facility] Address [address] [facility] [place] [address] Care Team Providers Name Role Phone No Ref-Primary, Physician Primary Care Provider Reason for Visit Reason Comments URI Coughing not improving, righ t eye, stitch removal left thumb- sinus infection Encounter Details Date Type Department Care Team Description 07/11/2022 Office Visit [facility] Pilar Escalante t cough (Primary Dx); Urgent [facility] PA-C Tachycardia; [address] Fatigue, unspecified type; [place], [place] Acute conjunc tivitis of right eye, unspecified acute conjunctivitis type; [address] Visit for suture removal [phone] Social History Tobacco Use Types Packs/Day Years [...] sent through Care Everywhere. Conjunctivitis, What Is? (Greek)Stitches/Staple Removal, No Complication (Greek)documented in this encounter Progress Notes Pilar Escalante [...] stable. Flovent inhaler is prescribed today. Elly Haskins Diego at home that she can also take [...] symptoms. Patient agrees. - trimethoprim-polymyxin b (POLYTRIM) 00058-5.1 UNIT/ML-% ophthalmic solution Dispense: 5 mL; Refill: [...] Symptoms failing to improve. Pilar Escalante PA-C [facility] [place]ANIE Maldonado is a 22 year old female [...] the left thumb. Sutures put in 07/04 [place] [facility] Review of Systems Constitutional, HEENT, cardiovascular, [...] Status --------- ------ CBC with platelets and d...[[id number]] Abnormal Final result Please view results for [...] platelets and differential (07/11/2022 12:56 PM CDT) [facility] Method Time Signature WBC Count [...] City/State/ZIP Code Phon [place] [address] Care Lab [address] Lab (1st floor, no room number) (ABNORMAL) Comprehensive metabolic panel (BMP + Alb, Alk Phos, ALT, AST, Total. Bili, TP) (07/11/2022 12:56 PM CDT) [facility] Method Time Signature Sodium 138 [...] and gender (Sarai et al., NEJM, DOI: 10.1056/[id number]) Specimen Anatomical Collection Method / Collection Time Recei ruth Time (Source) Location / Volume Laterality Blood STRUCTURE OF RIGHT Venipuncture / 07/11/2022 12:56 UPPER LIMB / Unknown PM CDT 12:56 PM CDT Unknown Pilar Escalante PA-C LAB - BLOOD ORDERABLES Performing Organization Address City/State/ZIP Code Phon e Number OX LABORATORY [facility] [place], [place] [phone] [facility] [place] [facility] [address] [place] [address] Lab (no room number, 1st floor of clinic) OX LABORATORY [place], [place] [phone] [facility] [address] [place] [facility] [address] Lab (no room number, 1st floor of clinic) Mononucleosis screen (07/11/2022 12:56 PM CDT) [facility] Method Time Signature Mononucleosis Negative Negative [...] Address City/State/ZIP Code Phon [place] [address] Lab [address] [facility] Lab (no room number, 1st floor of clinic) [place] [address], [facility] [address] [facility] Lab (no room number, 1st floor [...] sutures documented in this encounter Care Teams Ring Maker Relationship Specialty Start Date End Date No Ref-Primary, Physician PCP - General 07/04/22 documented as of this encounter
--- OUTSIDE RECORDS SUMMARY | 2022-08-21 14:56 | XMS_ITS | Clinical Summary ---
:2001 Author Organization [place] Address Formerly [facility], later [facility] [place] [address] Care Team Providers Name Role Phone No [...] ctive (TESSALON) 200 MG (200 mg) by mouth capsuleIndications: 3 times daily as Cough needed for cough fluticasone (FLOVENT Inhale 1 puff into 12 g 0 07/11/2022 Active HFA) 110 MCG/ACT the lungs 2 times inhalerIndications: daily Persistent cough Active Problems No known active problems Encounters [...] Assigned at Date Recorded Not on file Last Filed Vital Signs Vital Sign Reading [...] OF HM ORDERS 2001 CHLAMYDIA SCREENING 2001 HEPATITIS B IMMUNIZATION (1 2001 of 3 - 3-dose series) HIV SCREENING 2016 HEPATITIS C SCREENING 2019 DTAP/TDAP/TD IMMUNIZATION 12/01/2020 05/31/2020, 06/30/2012 (3 - Td or Tdap) COVID-19 Vaccine (3 - 05/06/2021 03/11/2021, 02/11/2021 Booster for Moderna series) YEARLY PREVENTIVE VISIT 05/31/2021 05/31/2020, 05/04/2019, 06/13/2018, Additional history exists PHQ-2 (once per calendar 10/25/2021 year) PAP 2022 INFLUENZA VACCINE (#1) 2022 11/02/2017, 11/02/2017, 07/10/2013, Additional history exists HPV IMMUNIZATION Completed 07/10/2013, 09/02/2012, 06/30/2012 MENINGITIS IMMUNIZATION Completed 06/10/2017, 06/30/2012 IPV IMMUNIZATION Aged Out No longer eligi [...] platelets and differential (07/11/2022 12:56 PM CDT) [facility] gist Method Time Signature WBC Count 10.8 4.0 [...] Address City/State/ZIP Code [place] [phone] Care Lab [address] [facility] Lab (1st floor, no room number) Mononucleosis screen (07/11/2022 12:56 PM CDT) [facility] gist Method Time Signature Mononucleosis Negative Negative ENID 07/11/2022 LV LABORATORY Screen 1:11 PM CDT Specimen Anatomical Collection Method / Collection Time Recei ruth Time (Source) Location / Volume Laterality Blood STRUCTURE OF RIGHT Venipuncture / 07/11/2022 12:56 UPPER LIMB / Unknown PM CDT 12:56 PM CDT Unknown Pilar Escalante PA-C LAB - BLOOD ORDERABLES Performing Organization Address City/[facility]/ZIP Code Phon [place] [address] Lab [address] [facility] Lab (no room number, 1st floor of clinic) [place] [address], [facility] [address] [facility] Lab (no room number, 1st floor of clinic) (ABNORMAL) Comprehensive metabolic panel (BMP + Alb, Alk Phos, ALT, AST, Total. Bili, TP) (07/11/2022 12:56 PM CDT) [facility] Method Time Signature Sodium 138 133 [...] es age and gender (Sarai et al., NEJ, DOI: [id number]/[id number]) Specimen Anatomical Collection Method / Collection Time Recei ruth Time (Source) Location / Volume Laterality Blood STRUCTURE OF RIGHT Venipuncture / 07/11/2022 12:56 UPPER LIMB / Unknown PM CDT 12:56 PM CDT Unknown Pilar Escalante PA-C LAB - BLOOD ORDERABLES Performing Organization Address City/State/ZIP Code Phon e Number OX LABORATORY [facility] Clinic - [place], [place] [phone] [place] [facility] [address] [place] [address] Lab (no room number, 1st floor of clinic) OX LABORATORY [place], [place] [phone] Clinic - [place] [address] [place] [facility] [address] Lab (no room number, 1st floor [...] CDT EXAM: XR CHEST 2 VIEWS LOCATION: [facility] DATE/TIME: 07/04/2022 3:47 PM INDICATION: cough COMPARISON: None. Procedure Note Bere Irizarry MD - 07/04/2022Forma tting of this note might be different from the original. EXAM: XR CHEST 2 VIEWS LOCATION: [facility] DATE/TIME: 07/04/2022 3:47 PM INDICATION: cough COMPARISON: None. IMPRESSION: Negative chest. Herman Sanches MD IMG DIAGNOSTIC IMAGING ORDER FOSTER Streptococcus A Rapid Screen w/Reflex to PCR - Clinic Collect (07/04/2022 3:04 PM CDT) Analysis Performed At Patho logist Time Signature Group A Strep Negative Negative 07/04/2022 LABORATORY antigen 3:19 PM CDT Specimen Anatomical Collection Method Collection Time Receive d Time (Source) Location / / Volume Laterality Swab STRUCTURE OF Non-blood 07/04/2022 3:04 PM 3:07 ANTERIOR PORTION Collection / CDT PM CDT OF NECK / Unknown Unknown Herman Sanches MD LAB - MICRO GENERAL ORDERABL ES Performing Organization Address City/State/ZIP Code Phon [place] [address] Lab [address] [facility] Lab (no room number, 1st floor of clinic) [place] [address], [facility] [address] [facility] Lab (no room number, 1st floor of clinic) Group A Streptococcus PCR Throat Swab (07/04/2022 3:04 PM CDT) [facility] Method Time Signature Group A strep Not [...] Xpress Strep A test, performed on the [employer]?? Instrument Systems, is a rapid, qualitative in [...] Code Phon e Number UU IDD LABORATORY [facility] [place] [address] Diag. Lab 500 [facility], Room [address]297 from Last 3 Months Insurance Payer Benefit Plan / Subscriber ID Effective Phone Address T ype Group Dates UNITED UNITED [id number] 2022-Prese [phone] [address] [facility] [address] [place] [address] Care Teams Metal Furniture Assembler Relationship Specialty Start Date End Date No Ref-Primary, Physician PCP - General 07/04/22
[2022-08-21 17:38] LABS: Vitamin D 25 Hydroxy* 41 ng/mL (30-80)
[2022-08-21 17:52] LABS: Thyroid Stimulating Hormone* 0.957 uIU/mL (0.270-4.20)
[2022-08-21 17:56] LABS: Ferritin* 51.1 ng/mL (6.24-137.0)
[2022-08-21 18:10] LABS: Vitamin B12* 356 pg/mL (243-894)
[2022-08-25 07:14] LABS: Folate, Serum >22.3 ng/mL (>=5.9)
== END 2022-08-21 14:53 | disposition home or self-care (01) ==
PROVIDERS: Visit Provider Family Medicine
DX: R00.0 Tachycardia, unspecified (principal)
CPT/HCPCS: 82306; 82607; 82728; 82746; 84443

== ENCOUNTER 2022-09-09 15:36 | Outpatient (CLI) | payer OTHER, SELFPAY ==
--- OUTSIDE RECORDS SUMMARY | 2022-09-09 15:38 | XMS_ITS | Encounter Summary ---
:2001 Author Organization [place] Address [address] [facility] [place] [address] Care Team Providers Name Role Phone No Ref-Primary, Physician Primary Care Provider Reason for Visit Reason Comments URI Coughing not improving, righ t eye, stitch removal left thumb- sinus infection Encounter Details Date Type Department Care Team Description 07/11/2022 Office Visit [facility] Pilar Escalante t cough (Primary Dx); [facility]gent [facility] PA-C Tachycardia; [address] Fatigue, unspecified type; [place], [place] Acute conjunc tivitis of right eye, unspecified acute conjunctivitis type; [phone] Visit for suture removal [phone] Social History Tobacco Use Types Packs/Day Years [...] sent through Care Everywhere. Conjunctivitis, What Is? (Vietnamese)Stitches/Staple Removal, No Complication (Vietnamese)documented in this encounter Progress Notes Pilar Escalante [...] symptoms. Patient agrees. - trimethoprim-polymyxin b (POLYTRIM) 52487-7.1 UNIT/ML-% ophthalmic solution Dispense: 5 mL; Refill: [...] Symptoms failing to improve. Pilar Escalante PA-C [facility]IE Maldonado is a 22 year old female [...] the left thumb. Sutures put in 07/04 [place] ED Review of Systems Constitutional, HEENT, cardiovascular, [...] Status --------- ------ CBC with platelets and d...[[id number]] Abnormal Final result Please view results for [...] platelets and differential (07/11/2022 12:56 PM CDT) [facility] Method Time Signature WBC Count 10.8 [...] City/State/ZIP Code Ph[place] [address] Care Lab [address] Lab (1st floor, no room number) (ABNORMAL) Comprehensive metabolic panel (BMP + Alb, Alk Phos, ALT, AST, Total. Bili, TP) (07/11/2022 12:56 PM CDT) [facility] Method Time Signature Sodium 138 133 [...] and gender (Sarai et al., NEJM, DOI: [id number]) Specimen Anatomical Collection Method / Collection Time Recei ruth Time (Source) Location / Volume Laterality Blood STRUCTURE OF RIGHT Venipuncture / 07/11/2022 12:56 UPPER LIMB / Unknown PM CDT 12:56 PM CDT Unknown Pilar Escalante PA-C LAB - BLOOD ORDERABLES Performing Organization Address City/State/ZIP Code Phon e Number OX LABORATORY [facility] [place], [place] [phone] [place] [facility] [address] [place] [address] Lab (no room number, 1st floor of clinic) OX LABORATORY [place], [place] [phone] [facility] [place] [phone] [place] [facility] [address] Lab (no room number, 1st floor of clinic) Mononucleosis screen (07/11/2022 12:56 PM CDT) [facility]ist Method Time Signature Mononucleosis Negative Negative [...] Address City/State/ZIP Code Ph[place] [address] [facility] Lab (no room number, 1st floor of clinic) [place] [address], [facility] [address] [facility] Lab (no room number, 1st floor [...] sutures documented in this encounter Care Teams Linotypist Relationship Specialty Start Date End Date No Ref-Primary, Physician PCP - General 07/04/22 documented as of this encounter
--- OUTSIDE RECORDS SUMMARY | 2022-09-09 15:38 | XMS_ITS | Encounter Summary ---
:2001 Author Organization [place] Address [address] [place] [address]. [place] [address] Care Team Providers Name Role Phone No Ref-Primary, Physician Primary Care Provider [phone] Encounter Details Date Type Department Care [...] on filedocumented in this encounter Care Teams Manager Student Services Relationship Specialty Start Date End Date No Ref-Primary, Physician PCP - General 07/04/22 documented as of this encounter
--- OUTSIDE RECORDS SUMMARY | 2022-09-09 15:38 | XMS_ITS | Clinical Summary ---
:2001 Author Organization [employer] [facility] [place] [address] Care Team Providers Name Role Phone Pcp, [...] Comments Blood Pressure 94/64 01/03/2021 8:41 AM ACCOUNTS RECEIVABLE EXECUTIVE Pulse 62 01/03/2021 8:41 AM ACCOUNTS RECEIVABLE EXECUTIVE Temperature 36.8 ??C (98.2 ??F) 01/03/2021 8:41 AM ACCOUNTS RECEIVABLE EXECUTIVE Respiratory Rate - - Oxygen Saturation - - Inhaled Oxygen Concentration - - Weight 51 kg (112 lb 6.4 oz) 01/03/2021 8:41 AM ACCOUNTS RECEIVABLE EXECUTIVE Height 157.5 cm (5' 2) 01/03/2021 8:41 AM ACCOUNTS RECEIVABLE EXECUTIVE Body Mass Index 20.56 01/03/2021 8:41 AM ACCOUNTS RECEIVABLE EXECUTIVE Plan of Treatment Health Maintenance Due Date Last Done Comments COVID-19 vaccine series (#1) 2001 HIV for age 15-65 2016 Chlamydia for age 16-24 2017 Hepatitis C [...] Effective Dates Phone Addre ss Type Group [facility] [id number] 2020-Present [address] [address] [place] [address] Care Teams Grain Drier Relationship Specialty Start Date End Date Pcp, No PCP - General 01/01/21 .
--- OUTSIDE RECORDS SUMMARY | 2022-09-09 15:38 | XMS_ITS | Encounter Summary ---
:2001 Author Organization [place] Address [address] [place] [address] Care Team Providers Name Role Phone No Ref-Primary, Physician Primary Care Provider Reason for Referral Diagnostic Imaging XR (Routine) - Pending Review Specialty Diagnoses / Procedures Referred By Contact Refer red To Contact Diagnoses Herman Neumann MD Procedures XR Chest 2 Views [address] [facility] [place] [address] Referral ID Status Reason Start Date Expiration Date Visits V isits Requested Authorized [id number] Pending 07/04/2022 07/04/2023 1 1 Review Reason [...] Department Care Team Description 07/04/2022 Office Visit [facility] Herman Sanches M D Throat pain (Primary Dx); Urgent Care [facility] [address] [facility] Cough; [address] [facility] Lower respiratory tract infection [place], [place] [phone] Social History Tobacco Use Types Packs/Day Years [...] through Care Everywhere. Bronchitis, Antibiotic Treatment (Adult) (Kazakh)documented in this encounter Progress Notes Herman Sanches MD - 07/04/2022 2:10 PM CDT SUBJECTIVE: New patient to [place] Erica De La Cruz is a 22 [...] bad as her Exposed to mold at [place] Medical history - anxiety, ADHD History reviewed. [...] CDT EXAM: XR CHEST 2 VIEWS LOCATION: [facility] DATE/TIME: 07/04/2022 3:47 PM INDICATION: cough COMPARISON: None. Procedure Note Bere Irizarry MD - 07/04/2022Forma tting of this note might be different from the original. EXAM: XR CHEST 2 VIEWS [facility]ATION: [facility] DATE/TIME: 07/04/2022 3:47 PM [...] Xpress Strep A test, performed on the [employer]?? Instrument Systems, is a rapid, qualitative in [...] Code Phon e Number UU IDD LABORATORY [facility] [place] [address] Diag. Lab 500 [facility], Room D297 Streptococcus A Rapid Screen w/Reflex [...] Address City/State/ZIP Code Phon [place] [address] Lab [address] [facility] Lab (no room number, 1st floor of clinic) [place] [address], [facility] [address] [facility] Lab (no room number, 1st floor of clinic) documented in this encounter Visit Diagnoses Diagnosis Throat pain - Primary Cough Lower respiratory tract infection Other diseases of respiratory system, no t elsewhere classified Cough documented in this encounter Care Teams Medical Laboratory Technical Officer Relationship Specialty Start Date End Date No Ref-Primary, Physician PCP - General 07/04/22 documented as of this encounter
--- OUTSIDE RECORDS SUMMARY | 2022-09-09 15:38 | XMS_ITS | Encounter Summary ---
:2001 Author Organization [place] Address Count includes the [facility] [place] [address] Care Team Providers Name Role Phone No Ref-Primary, Physician Primary Care Provider [phone] Reason for Visit Diagnostic Imaging XR (Routine) - Pending Review Specialty Diagnoses / Procedures Referred By Contact Refer red To Contact Diagnoses Cough Herman Sanches MD Procedures XR Chest [address] [place] [address] [place] [address] Referral ID Status Reason Start Date Expiration Date Visits V isits Requested Authorized [id number] Pending 07/04/2022 07/04/2023 1 1 Review Encounter Details Date Type Department Care Team Description 07/04/2022 Ancillary Procedure [facility] Devyn Sanches MD [facility] [address] [place] [address] [phone] Social History Tobacco Use Types Packs/Day Years [...] CDT EXAM: XR CHEST 2 VIEWS LOCATION: [facility] DATE/TIME: 07/04/2022 3:47 PM INDICATION: cough COMPARISON: None. Procedure Note Bere Irizarry MD - 07/04/2022Forma tting of this note might be different from the original. EXAM: XR CHEST 2 VIEWS LOCATION: [facility] DATE/TIME: 07/04/2022 3:47 PM INDICATION: cough COMPARISON: None. IMPRESSION: Negative chest. Herman Sanches MD IMG DIAGNOSTIC IMAGING ORDER FOSTER documented in this encounter Visit Diagnoses Diagnosis Cough documented in this encounter Care Teams Phlebotomist Associate Relationship Specialty Start Date End Date No Ref-Primary, Physician PCP - General 07/04/22 documented as of this encounter
--- OUTSIDE RECORDS SUMMARY | 2022-09-09 15:38 | XMS_ITS | Clinical Summary ---
:2001 Author Organization [place] Address [facility] [place] [address] Care Team Providers Name Role Phone No [...] platelets and differential (07/11/2022 12:56 PM CDT) [facility] gist Method Time Signature WBC Count 10.8 [...] Address City/State/ZIP Code Phon [place] [phone] Care Lab [address] [facility] Lab (1st floor, no room number) Mononucleosis screen (07/11/2022 12:56 PM CDT) [facility] gist Method Time Signature Mononucleosis Negative Negative ENID 07/11/2022 LV LABORATORY Screen 1:11 PM CDT Specimen Anatomical Collection Method / Collection Time Recei ruth Time (Source) Location / Volume Laterality Blood STRUCTURE OF RIGHT Venipuncture / 07/11/2022 12:56 UPPER LIMB / Unknown PM CDT 12:56 PM CDT Unknown Pilar Escalante PA-C LAB - BLOOD ORDERABLES Performing Organization Address City/[facility]/ZIP Code Phon [place] [address] Lab [address] [facility] Lab (no room number, 1st floor of clinic) [place] [address], [facility] [address] [facility] Lab (no room number, 1st floor of clinic) (ABNORMAL) Comprehensive metabolic panel (BMP + Alb, Alk Phos, ALT, AST, Total. Bili, TP) (07/11/2022 12:56 PM CDT) [facility] Method Time Signature Sodium 138 133 [...] and gender (Sarai et al., NEJ, DOI: [id number]) Specimen Anatomical Collection Method / Collection Time Recei ruth Time (Source) Location / Volume Laterality Blood STRUCTURE OF RIGHT Venipuncture / 07/11/2022 12:56 UPPER LIMB / Unknown PM CDT 12:56 PM CDT Unknown Pilar Escalante PA-C LAB - BLOOD ORDERABLES Performing Organization Address City/State/ZIP Code Phon e Number OX LABORATORY [facility] Clinic - [place], [place] [phone] [place] [facility] [address] [place] [address] Lab (no room number, 1st floor of clinic) OX LABORATORY [place], [place] [phone] Clinic - [place] [address] [place] [facility] [address] Lab (no room number, 1st floor [...] CDT EXAM: XR CHEST 2 VIEWS LOCATION: [facility] DATE/TIME: 07/04/2022 3:47 PM INDICATION: cough COMPARISON: None. Procedure Note Bere Irizarry MD - 07/04/2022Forma tting of this note might be different from the original. EXAM: XR CHEST 2 VIEWS LOCATION: [facility] DATE/TIME: 07/04/2022 3:47 PM INDICATION: [...] City/State/ZIP Code Phon [place] [address] Lab [address] [facility] Lab (no room number, 1st floor of clinic) [place] [address], [facility] [address] [facility] Lab (no room number, 1st floor of clinic) Group A Streptococcus PCR Throat Swab (07/04/2022 3:04 PM CDT) [facility] Method Time Signature Group A strep [...] Xpress Strep A test, performed on the [employer]?? Instrument Systems, is a rapid, qualitative in [...] [facility] [place] [address] Diag. Lab [address] [facility], [address] from Last 3 Months Insurance Payer Benefit Plan / Subscriber ID Effective Phone Address T ype Group Dates UNITED UNITED [id number] 2022-Prese [phone] [address] [facility] [address] [place] [address] Care Teams Corporate Legal Manager Relationship Specialty Start Date End Date No Ref-Primary, Physician PCP - General 07/04/22
--- OUTSIDE RECORDS SUMMARY | 2022-09-09 15:38 | XMS_ITS | Encounter Summary ---
:2001 Author Organization [place] Address [address] [place] [address]. [place] [address] Care Team Providers Name Role Phone No Ref-Primary, Physician Primary Care Provider Encounter Details Date Type Department Care Team [...] on filedocumented in this encounter Care Teams Circular Sawyer Stone Relationship Specialty Start Date End Date No Ref-Primary, Physician PCP - General 07/04/22 documented as of this encounter
[2022-09-09 19:08] LABS: Chlamydia DNA Amplified* NOT DETECTED (No Detected); GC DNA Amplified* NOT DETECTED (No Detected)
== END 2022-09-09 15:37 | disposition home or self-care (01) ==
LOC: NFLDREF 15:36
PROVIDERS: Visit Provider Obstetrics & Gynecology
DX: Z01.419 Encounter for gynecological examination (general) (routine) without abnormal findings (principal); N89.8 Other specified noninflammatory disorders of vagina
CPT/HCPCS: 87491; 87591